=== PATIENT | female | born 1960 | race African-American/Black ===

== ENCOUNTER 2019-05-21 16:14 | Inpatient (IN) ==
[2019-05-21] MEDS ORDERED: ZOFRAN IV ONE ×2 (17:16→23:14)
[2019-05-21] MEDS ORDERED: ZOSYN 4.5 GM in NS 100 ML IV ONE ×2 (17:16→22:22)
[2019-05-21] MEDS ORDERED: MORPHINE IV ONE ×2 (17:16→23:14)
[2019-05-21] MEDS ORDERED: NS 1,000 ML IV ONE ×3 (17:16→19:55)
--- NOTE | 2019-05-21 18:15 | EKG Report ---
Test Performed on : 05/21/2019 5:53:47 PM Test Reason : vomiting Blood Pressure : / mmHG Vent. Rate : 084 BPM Atrial Rate : 084 BPM P-R Int : 120 ms QRS Dur : 078 ms QT Int : 434 ms P-R-T Axes : 083 068 057 degrees QTc Int : 512 ms Normal sinus rhythm. Right atrial enlargement Prolonged QT Abnormal ECG When compared with ECG of 31-JAN-2018 12:04, QT has lengthened Unconfirmed Result
--- NOTE | 2019-05-21 18:20 | PROVIDER DOCUMENTATION ---
This chart was entered by Sybil Chaparro Scribe, acting as scribe for Dalton Morgan MD. HPI-Abdominal Pain/GI Problem - General Source: patient - History of Present Illness-ABD Nature of Presenting Problems: Patient is a 58 year old female who presents to the ED via EMS with generalized abdominal pain. States having diarrhea 5 days ago and then it resolved after 2 days. Reports nausea and vomiting this morning. States having blood in emesis. History of colon surgery in 2011. Denies passing gas. Abdominal Pain Onset Location: reports: generalized abdomen Pain Radiation: reports: no radiation Quality of Pain: reports: aching Severity in ED: reports: mild Onset/Duration: reports: 5 days ago Timing: reports: still present, getting worse Activities at Onset: reports: light activity Modifying Factors: improves with: nothing Associated Symptoms: reports: diarrhea, nausea, vomiting Last BM: 3 days ago Emesis Description: reports: red blood Bruising or Bleeding Gums?: No Similar Symptoms Previously?: Yes Recently seen or treated by another doctor?: No <Dalton Morgan - Last Filed: 05/21/19 18:17> <Yemi Castellanos - Last Filed: 05/22/19 05:16> - General Chief Complaint: N/V/D Stated Complaint: N/V/D Time Seen by Provider: 05/21/19 17:09 Allergies/Adverse Reactions: Patient Allergies Allergy/AdvReac Type Severity Reaction Status Date / Time No Known Allergies Allergy Unverified 10/27/15 20:45 Home Medications: Home Medication List Medication Instructions Recorded Confirmed Last Taken Type Amlodipine [Norvasc] 5 mg PO QAM 08/30/14 05/22/19 06/15/15 14:00 History Pregabalin [Lyrica] 50 mg PO TID 08/30/14 05/22/19 06/15/15 14:00 History Levothyroxine [Synthroid] 50 microgm PO QAM 06/16/15 05/22/19 06/15/15 14:00 History Ciprofloxacin HCl 500 mg PO BID 7 Days #14 tab 05/22/19 Unknown Rx Metronidazole [Flagyl] 500 mg PO TID #21 tab 05/22/19 Unknown Rx Ondansetron Odt [Zofran 4 mg Odt] 4 mg PO Q6H PRN PRN #10 tab 05/22/19 Unknown Rx Umeclidinium/Vilanterol [Anoro 1 puff INH DAILY 05/22/19 05/22/19 Unknown History Ellipta 62.5-25 Mcg INH] Review of Systems - Adult - REVIEW OF SYSTEMS - ADULT Constitutional: reports: no symptoms reported Eyes: reports: no symptoms reported Ears, Nose, Mouth & Throat: reports: no symptoms reported Cardiovascular: reports: no symptoms reported Respiratory: reports: cough. denies: shortness of breath, wheezing Gastrointestinal: reports: see HPI, abdominal pain (generalized), hematemesis, nausea. denies: diarrhea Genitourinary: reports: no symptoms reported Musculoskeletal: reports: no symptoms reported Integumentary: reports: no symptoms reported Neurological: reports: no symptoms reported Psychiatric: reports: no symptoms reported Endocrine: reports: no symptoms reported Hematologic/Lymphatic: reports: no symptoms reported Allergic/Immunologic: reports: no symptoms reported All Other Systems: Reviewed and Negative <Dalton Morgan - Last Filed: 05/21/19 18:17> Past History - Adult - PAST MEDICAL HISTORY-ADULT Review of Records: reports: Old Records Reviewed, Nursing Assessment Review, Medications Reviewed, Social history reviewed & non-contributory. Major Childhood Illnesses: reports: denies history Cardiovascular: reports: HTN Respiratory: reports: COPD Gastrointestinal: reports: denies history Obstetrical/Gynecological: reports: denies history Genitourinary: reports: denies history Musculoskeletal: reports: denies history Neurological: reports: CVA, other (brain aneurysm) Psychiatric: reports: denies history Endocrine/Immune: reports: thyroid disorder Other Conditions: reports: denies history - PRIOR SURGERIES/PROCEDURES Surgical/Procedure History: reports: hysterectomy, bowel surgery - PRIOR HOSPITALIZATIONS Prior Hospitalizations: reports: none - IMMUNIZATION STATUS Childhood Immunizations: See Nurse Assessment Flu Vaccine: See Nurse Assessment - FAMILY HISTORY Family History: reviewed, not pertinent - SOCIAL HISTORY Smoking: cigarettes, greater than 1 pack/day Provider spent 3-5 mins advising pt. on dangers of tobacco.: Discussed manners to quit use, and f/u contacts for add'l counseling. Substance Use: marijuana Living Situation: family <Dalton Morgan - Last Filed: 05/21/19 18:17> Physical Exam-General - PHYSICAL EXAM-ADULT Initial Vital Signs Reviewed: Yes - CONSTITUTIONAL General Appearance: alert, mild distress, other (ill in appearance) - RESPIRATORY Respiratory: chest non-tender, rhonchi (bilateral. left worse than right.), increased rate. negative: respiratory distress - CARDIOVASCULAR Cardiovascular: regular rate, rhythm, no gallop, no murmur. negative: tachycardia - GASTROINTESTINAL (ABDOMEN) Abdominal Exam: normal bowel sounds, soft, tenderness (diffuse). negative: guarding, rebound - SKIN Integumentary: normal color, normal turgor, warm/dry. negative: diaphoresis, pallor - NEUROLOGIC Neurologic: grossly normal. negative: aphasia, facial droop - PSYCHIATRIC Psych/Mental Status: normal mood/affect, oriented x 3. negative: anxious <Dalton Morgan - Last Filed: 05/21/19 18:17> Progress - PLAN OF CARE/RESULTS Progress/Plan/Lab Results: Vital Signs - 8 hr 05/21/19 16:55 Temperature 97.0 F L Pulse Rate 100 H Respiratory Rate 20 Blood Pressure 104/78 O2 Sat by Pulse Oximetry 92 L Orders Category Date Time Status Orthostatic Vital Signs NOW Care 05/21/19 17:04 Active CBC WITH ELECTRONIC DIFF [HEME] Stat Lab 05/21/19 17:03 Uncollected COMPREHENSIVE METABOLIC PANEL [CHEM] Stat Lab 05/21/19 17:03 Uncollected LIPASE [CHEM] Stat Lab 05/21/19 17:03 Uncollected URINALYSIS W/POSS RFLX CULT [URINALYSIS] Stat Lab 05/21/19 17:03 Uncollected URINE DRUG SCREEN Stat Lab 05/21/19 17:03 Uncollected - REASSESSMENT Reassessment #1 Time Reassessed: 18:20 Status: improving (Given iVF bolus, IV morphine and zofran) - EKG 1 Time of EKG reading by physician:: 18:19 EKG Read and Signed by:: Dalton Morgan EKG Interpretation (*Must complete 3 of following elements*): Normal Rate: 84 Rhythm: NSR Dittmer: normal QRS: LVH, other (early transition) TX Interval: normal ST Wave: non-specific ST changes Comments: prolonged QTc, artifact present - CHANGE OF SHIFT REPORT (ED Provider) 1 Report Given and Care Transferred to:: Dr. Castellanos Time of Transfer: 19:00 Items Pending: Labs, CT/MRI Results <Dalton MorganRosalie - Last Filed: 05/21/19 18:17> - PLAN OF CARE/RESULTS Progress/Plan/Lab Results: 05/21/19 17:50 Influenza Screen - Final Nasopharyngeal Laboratory Results - last 24 hr 05/21/19 05/21/19 05/21/19 00:17 18:30 18:38 WBC 10.40 RBC 5.65 H Hgb 17.8 H Hct 53.1 H MCV 94.0 MCH 31.5 H MCHC 33.5 RDW Std Deviation 13.9 Plt Count 234 MPV 11.6 H Immature Gran % (Auto) 0.2 Neut % (Auto) 83.4 H Lymph % (Auto) 12.6 L Garfield % (Auto) 3.6 Eos % (Auto) 0.0 Baso % (Auto) 0.2 Immature Gran # (Auto) 0.02 Neut # (Auto) 8.68 H Lymph # (Auto) 1.31 Garfield # (Auto) 0.37 Eos # (Auto) 0.00 Baso # (Auto) 0.02 PT INR Sodium Potassium Chloride Carbon Dioxide Anion Gap BUN Creatinine Estimated GFR/1.73 m2 BUN/Creatinine Ratio Glucose Calculated Osmolality Calcium Total Bilirubin AST ALT Alkaline Phosphatase Troponin T Rdi-H-Owolvxltezf Pept Total Protein Albumin Globulin Albumin/Globulin Ratio Lipase Plasma Lactate 2.7 H 5.1 H* Urine Source Urine Color Urine Turbidity Urine pH Ur Specific [place] Urine Protein Ur Glucose (Stick) Ur Ketones (Stick) Urine Blood Urine Nitrite Urine Bilirubin Urobilinogen Dipstick Urine Leukocytes Urine WBC (Auto) Urine RBC (Auto) U Epithel Cells (Auto) Urine Bacteria (Auto) Urine Crystals Small Round Cells Urine Casts Urine Yeast-like Cells Urine Opiates Screen Ur Oxycodone Screen Ur Methadone, Qual Ur Barbiturates Screen Ur Phencyclidine Scrn Ur Amphetamines Screen U Benzodiazepines Scrn Urine Cocaine Screen U Cannabinoids Screen 05/21/19 05/21/19 05/21/19 18:38 18:38 18:38 WBC RBC Hgb Hct MCV MCH MCHC RDW Std Deviation Plt Count MPV Immature Gran % (Auto) Neut % (Auto) Lymph % (Auto) [place]field % (Auto) Eos % (Auto) Baso % (Auto) Immature Gran # (Auto) Neut # (Auto) Lymph # (Auto) Garfield # (Auto) Eos # (Auto) Baso # (Auto) PT 14.3 INR 1.09 Sodium 140 Potassium 4.0 Chloride 100 Carbon Dioxide 16 L Anion Gap 24 BUN 14 Creatinine 0.9 Estimated GFR/1.73 m2 > 60 BUN/Creatinine Ratio 16 Glucose 215 H Calculated Osmolality 286 Calcium 10.4 H Total Bilirubin 0.40 AST 26 ALT 17 Alkaline Phosphatase 129 H Troponin T Biz-U-Qryjzrfcjbl Pept 38 Total Protein 7.6 Albumin 4.8 Globulin 2.8 Albumin/Globulin Ratio 1.7 Lipase 26 Plasma Lactate Urine Source Urine Color Urine Turbidity Urine pH Ur Specific [place] Urine Protein Ur Glucose (Stick) Ur Ketones (Stick) Urine Blood Urine Nitrite Urine Bilirubin Urobilinogen Dipstick Urine Leukocytes Urine WBC (Auto) Urine RBC (Auto) U Epithel Cells (Auto) Urine Bacteria (Auto) Urine Crystals Small Round Cells Urine Casts Urine Yeast-like Cells Urine Opiates Screen Ur Oxycodone Screen Ur Methadone, Qual Ur Barbiturates Screen Ur Phencyclidine Scrn Ur Amphetamines Screen U Benzodiazepines Scrn Urine Cocaine Screen U Cannabinoids Screen 05/21/19 05/21/19 05/21/19 18:38 21:17 21:17 WBC RBC Hgb Hct MCV MCH MCHC RDW Std Deviation Plt Count MPV Immature Gran % (Auto) Neut % (Auto) Lymph % (Auto) [place] % (Auto) Eos % (Auto) Baso % (Auto) Immature Gran # (Auto) Neut # (Auto) Lymph # (Auto) [place]field # (Auto) Eos # (Auto) Baso # (Auto) PT INR Sodium Potassium Chloride Carbon Dioxide Anion Gap BUN Creatinine Estimated GFR/1.73 m2 BUN/Creatinine Ratio Glucose Calculated Osmolality Calcium Total Bilirubin AST ALT Alkaline Phosphatase Troponin T < 0.010 Nyi-N-Luxdybajjud Pept Total Protein Albumin Globulin Albumin/Globulin Ratio Lipase Plasma Lactate Urine Source CLEAN CATCH Urine Color YELLOW Urine Turbidity CLEAR Urine pH 6.5 Ur Specific [place] 1.015 Urine Protein 70 A Ur Glucose (Stick) NEGATIVE Ur Ketones (Stick) TRACE A Urine Blood TRACE A Urine Nitrite NEGATIVE Urine Bilirubin NEGATIVE Urobilinogen Dipstick NORMAL Urine Leukocytes NEGATIVE Urine WBC (Auto) 20-40 A Urine RBC (Auto) <10 U Epithel Cells (Auto) <10 Urine Bacteria (Auto) NEGATIVE Urine Crystals NONE SEEN Small Round Cells NONE SEEN Urine Casts NONE SEEN Urine Yeast-like Cells NONE SEEN Urine Opiates Screen PRESUMPTIVE POSITIVE A Ur Oxycodone Screen NONE DETECTED Ur Methadone, Qual NONE DETECTED Ur Barbiturates Screen NONE DETECTED Ur Phencyclidine Scrn NONE DETECTED Ur Amphetamines Screen NONE DETECTED U Benzodiazepines Scrn NONE DETECTED Urine Cocaine Screen NONE DETECTED U Cannabinoids Screen PRESUMPTIVE POSITIVE A Orders Category Date Time Status Nursing- Obtain EKG once Care 05/21/19 17:17 Active Orthostatic Vital Signs NOW Care 05/21/19 17:[address] ABD/PELVIS W/IV CONT ONLY [CT] Stat Exams 05/21/19 17:16 Completed BLOOD CULTURE [BLDCUL] Stat Lab 05/21/19 20:31 Results CBC WITH ELECTRONIC DIFF [HEME] Stat Lab 05/21/19 18:38 Completed COMPREHENSIVE METABOLIC PANEL [CHEM] Stat Lab 05/21/19 18:38 Completed INFLUENZA SCREEN A/B Stat Lab 05/21/19 17:50 Completed LACTATE, PLASMA [CHEM] Stat Lab 05/21/19 00:17 Completed LACTATE, PLASMA [CHEM] Stat Lab 05/21/19 18:30 Completed LIPASE [CHEM] Stat Lab 05/21/19 18:38 Completed PRO B-NATRIURETIC PEPTIDE Stat Lab 05/21/19 18:38 Completed PROTIME WITH INR [COAG] Stat Lab 05/21/19 18:38 Completed TROPONIN T Stat Lab 05/21/19 18:38 Completed URINALYSIS W/POSS RFLX CULT [URINALYSIS] Stat Lab 05/21/19 21:17 Completed URINE DRUG SCREEN Stat Lab 05/21/19 21:17 Completed URINE MANUAL MICROSCOPIC [URINALYSIS] Stat Lab 05/21/19 21:17 Completed 0.9% Sodium Chloride Inj [Ns] 1,000 ml Med 05/21/19 17:16 Discontinued IV 999 mls/hr 0.9% Sodium Chloride Inj [Ns] 1,000 ml Med 05/21/19 17:16 Discontinued IV 999 mls/hr 0.9% Sodium Chloride Inj [Ns] 1,000 ml Med 05/21/19 19:55 Discontinued IV 999 mls/hr Morphine Med 05/21/19 23:14 Discontinued 2 mg IV NOW ONE Morphine Med 05/21/19 17:16 Discontinued 4 mg IV NOW ONE Ondansetron [Zofran] Med 05/21/19 17:16 Discontinued 4 mg IV NOW ONE Ondansetron [Zofran] Med 05/21/19 23:14 Discontinued 4 mg IV NOW ONE Piperacillin/Tazobactam [Zosyn] Med 05/21/19 22:26 Discontinued 2.25 gm .ROUTE .STK-MED ONE Piperacillin/Tazobactam [Zosyn] Med 05/21/19 23:25 Discontinued 2.25 gm .ROUTE .STK-MED ONE Piperacillin/Tazobactam [Zosyn] 4.5 gm Med 05/21/19 17:16 Discontinued 0.9% Sodium Chloride Inj [Ns] 100 ml IV NOW Piperacillin/Tazobactam [Zosyn] 4.5 gm Med 05/21/19 22:22 Discontinued 0.9% Sodium Chloride Inj [Ns] 100 ml IV NOW EKG [EKG] Stat Ther 05/21/19 17:17 Draft Result Diagrams: 05/21/19 18:38 05/21/19 18:38 - REASSESSMENT Reassessment #2 Time Reassessed: 22:45 Status: improving (lactate pending) Reassessment #3 Time Reassessed: 03:00 Status: improving (pain well controlled. Lactate decreased, m/l increase was from dehydration. will d/c home) Reassessment #4 Time Reassessed: 04:00 Status: other (pt was feeling better and about to leave and then started throwing up again. will admit. Hospitalist paged.) - CONSULTS/PCP/HOSPITALIST Notification #1 *Consult/PCP/Hospitalist*: Dr Bach Time Discussed: 05:16 Consult Disposition: Admit <Yemi Castellanos - Last Filed: 05/22/19 05:16> Departure <Dalton Morgan - Last Filed: 05/21/19 18:17> - Departure Date of Disposition Decision: 05/22/19 Time of Disposition Decision: 03:18 Certified Medical Emergency: Emergent - Critical Care Note This patient required my direct & personal management of CC.: No <Yemi Castellanos - Last Filed: 05/22/19 05:16> - Departure DIAGNOSIS: Nausea & vomiting, Back pain, Dehydration, Elevated lactic acid level Disposition: ADMITTED INPATIENT 09 Condition: Stable Additional Instructions: ED Follow Up Instructions: You have been treated by a care provider in the Emergency Department. These instructions are being provided to you so you can have an understanding of how to care for yourself upon discharge. Upon discharge from the Emergency Department, you are responsible for making arrangements for follow-up care by a physician of your choice. Take all prescribed medications as directed. Return to the Emergency Department immediately for any new or worsening symptoms. You may call the Physician Referral phone number at [phone] to obtain a list of Physicians who are taking new patients. Prescriptions: Ciprofloxacin HCl 500 mg PO BID 7 Days #14 tab Metronidazole [Flagyl] 500 mg PO TID #21 tab Ondansetron Odt [Zofran 4 mg Odt] 4 mg PO Q6H PRN PRN #10 tab PRN Reason: Nausea Referrals and Follow-Ups: Génesis Hernandez MD [Primary Care Provider] - Discharge Education: Abdominal Pain, Adult Attestation - Physician/ LUZ Attestation The physician spent face to face time with patient:: Yes Advanced Practice Provider documentation review:: Supervising physician onsite and consulted in the evaluation and care of this patient. The physician did have a face to face encounter with the patient. <Dalton Morgan - Last Filed: 05/21/19 18:17> - Physician/ LUZ Attestation Patient care was provided by Advanced Practice Provider:: No <Yemi Castellanos - Last Filed: 05/22/19 05:16> This chart was documented by the indicated scribe, (Sybil Chaparro Scribe) and accurately reflects the services I performed and decisions made by me, Dalton Morgan MD, as attested by the provider's signature.
[2019-05-21 19:06] LABS: BASO# 0.02 X1000 (0.0-0.2); BASO% 0.2 % (0.0-0.8); HEMATOCRIT 53.1 % (37.0-47.0); HEMOGLOBIN 17.8 g/dL (12.0-16.0); IMM GRAN# 0.02 X1000 (0.0-0.04); IMM GRAN% 0.2 % (0.0-0.5); LYMPH# 1.31 X1000 (1.2-3.4); LYMPH% 12.6 % (20.5-51.1); MCH 31.5 PG (27-31); MCHC 33.5 g/dL (33-37); MONO# 0.37 X1000 (0.11-0.59); MONO% 3.6 % (1.7-9.3); MPV 11.6 FL (7.4-10.4); NEUT# 8.68 X1000 (1.4-6.5); NEUT% 83.4 % (42.2-75.2); PLT 234 X1000 (130-400); RBC 5.65 XMIL (4.2-5.4); RDW 13.9 % (11.5-14.5)
[2019-05-21 19:18] LABS: INR 1.09; PROTIME 14.3 Seconds (11.0-16.0)
[2019-05-21 19:29] LABS: AGAP 24; ALB/GLOB RATIO 1.7; ALBUMIN 4.8 g/dL (3.5-5.0); ALKALINE PHOSPHATASE 129 U/L (32-104); BUN 14 mg/dL (8-22); CALCIUM 10.4 mg/dL (8.8-10.2); CHLORIDE 100 mmol/L (98-107); COSMO 286; CREATININE 0.9 mg/dL (0.5-0.9); ESTIMATED GFR > 60; GLUCOSE 215 mg/dL (70-104); GOT 26 U/L (10-30); GPT 17 U/L (10-36); LIPASE 26 U/L (13-60); SODIUM 140 mmol/L (136-145); TCO2 16 mmol/L (25-35); TOTAL PROTEIN 7.6 g/dL (6.3-8.3)
--- NOTE | 2019-05-21 20:41 | Diag Imaging Result Doc PS360 ---
CT ABD/PELVIS W/IV CONT ONLY - 05/21/2019 INDICATION: colitis COMPARISON: 10/27/2015 FINDINGS: The lung bases are clear and the heart size is normal. There is amwgk-bo-fbxrouey ascites. The colon is severely abnormal compatible with diffuse colitis. There are surgical suture lines of the ascending colon. No obstruction or free air. Uterus is absent. Urinary bladder and rectum are normal. There are moderate degenerative changes of the spine. No acute or suspicious bony lesion. IMPRESSION: 1. Severe diffuse colitis. 2. Small to moderate ascites. This exam was performed using automated exposure control, adjustment of mA or kV according to patient size, and/or use of iterative reconstruction technique Electronically signed by Elmer Torres 05/21/2019 8:39 PM
[2019-05-21 22:23] LABS: URINE SOURCE CLEAN CATCH
[2019-05-21] MEDS ORDERED: ZOSYN ONE ×2 (22:26→23:25)
[2019-05-21 22:30] LABS: BILIRUBIN URINE NEGATIVE (NEGATIVE); BLOOD URINE TRACE (NEGATIVE); COLOR YELLOW; GLUCOSE URINE NEGATIVE (NEGATIVE); KETONE URINE TRACE mg/dL (NEGATIVE); LEUKOCYTES URINE NEGATIVE (NEGATIVE); NITRITE URINE NEGATIVE (NEGATIVE); PH URINE 6.5; PROTEIN URINE 70 mg/dL (NEGATIVE); TURBIDITY URINE CLEAR (CLEAR); UROBILINOGEN URINE NORMAL (NORMAL)
[2019-05-21 22:37] LABS: UR EPITHELIAL CELLS <10 /HPF (<10); URINE BACTERIA NEGATIVE /HPF; URINE RBC <10 /HPF (<10); URINE WBC 20-40 /HPF (<10)
[2019-05-21 22:44] LABS: URINE CASTS NONE SEEN; URINE CRYSTALS NONE SEEN; URINE SMALL ROUND CELLS NONE SEEN; URINE YEAST NONE SEEN
[2019-05-21 22:49] LABS: SP GRAVITY URINE 1.015
[2019-05-21 23:06] LABS: UR AMPHETAMINES QUAL NONE DETECTED (NONE DETECT); UR BARBITUATES QUAL NONE DETECTED (NONE DETECT); UR BENZODIAZEPIN QUAL NONE DETECTED (NONE DETECT); UR CANNABINOIDS QUAL PRESUMPTIVE POSITIVE (NONE DETECT); UR COCAINE QUAL NONE DETECTED (NONE DETECT); UR METHADONE QUAL NONE DETECTED (NONE DETECT); UR OPIATES QUAL PRESUMPTIVE POSITIVE (NONE DETECT); UR OXYCODONE QUAL NONE DETECTED (NONE DETECT); UR PCP QUAL NONE DETECTED (NONE DETECT)
[2019-05-22] MEDS ORDERED: DUONEB (A & A) INH SCH (05:45)
[2019-05-22] MEDS ORDERED: NS 1,000 ML IV ONE (05:46)
[2019-05-22] MEDS: DUONEB (A & A) INH PRN ×3 (05:55→20:00)
[2019-05-22] MEDS ORDERED: ZOFRAN IV PRN (06:19)
[2019-05-22] MEDS ORDERED: ZOSYN 3.375 GM in NS 50 ML IV SCH (06:45)
[2019-05-22] MEDS ORDERED: ZOFRAN ODT PO PRN (07:03)
[2019-05-22] MEDS ORDERED: SODIUM CHLORIDE 0.9% INJ PRN (07:04)
--- NOTE | 2019-05-22 07:11 | Diag Imaging Result Doc PS360 ---
CHEST-PORTABLE - 05/22/2019 INDICATION: Coarse Rhonchi and wheezing COMPARISON: 04/08/2018 FINDINGS: Lung volumes are much lower. There is some linear atelectasis in the lateral left lung base. No infiltrates or edema. Heart size is normal. Stable calcified granulomas in the left midlung. IMPRESSION: Lower lung volumes with mild linear atelectasis in the lateral left lung base. Electronically signed by Elmer Torres 05/22/2019 7:09 AM
[2019-05-22] MEDS ORDERED: TYLENOL PO PRN (07:15)
[2019-05-22] MEDS: LYRICA PO SCH ×3 (08:10→20:07)
[2019-05-22] MEDS: PROTONIX IV SCH ×2 (08:10→20:06)
[2019-05-22] MEDS: NS 1,000 ML IV SCH (08:10)
[2019-05-22] MEDS: MORPHINE IV PRN ×3 (08:11→20:07)
[2019-05-22] MEDS: SYNTHROID PO SCH (08:11)
--- NOTE | 2019-05-22 08:35 | HISTORY AND PHYSICAL ---
PRIMARY CARE PROVIDER: Dr. Génesis Hernandez. DATE AND TIME: 05/22/2019 at 0525. CHIEF COMPLAINT: Abdominal pain with nausea, vomiting, and diarrhea. HISTORY OF PRESENT ILLNESS: Ms Islas is a 58-year-old female who states that since May 16, approximately 6 days ago, that she has been having generalized abdominal pain that is radiating through to her back at the level of her umbilicus. She reports that the pain is a constant aching type pain that does become sharp at times. She reports that it has been constant since onset, though when she arrived in the ER, she was given IV morphine that she states has helped improve her pain. She reports that since May 16, 6 days ago, that she also was having diarrhea though she states that this did stop on the , 2 days ago. She denies any diarrhea or any bowel movements since that time. The patient also reports that she has not really eating anything or drank much fluids either. She states that yesterday she did begin having nausea and vomiting and did have several episodes of vomiting yesterday. She denies any fever, body aches, or chills. She denies any recent travel or being around anyone with similar symptoms. She also has reported some hematemesis when her nausea and vomiting first began and did report that initially when her diarrhea started that she was having some melena. She denies any use of iron tablets or Pepto-Bismol. She also denies any [id number] use of any medications such as aspirin, ibuprofen, naproxen, or BC powders. The patient does report that she drinks 1 wine cooler a day, which she reported was a wine cooler called a screwdriver, though she states just 1 a day is all she drinks. She did report to occasionally smoking marijuana as well. She denied any recent known history of having colitis or any type of gastrointestinal infection. She also denies any dizziness. She does report that she has chronic headaches secondary to her previous history of stroke, though none of these have been outside of her usual headaches. She denies any chest pain. The patient does report a chronic cough that is related to her COPD, though she states this has not worsened, is nonproductive. She also denies any shortness of breath. She denies any dysuria or urinary frequency. She denies any pain, numbness, tingling or swelling in extremities. Upon evaluation in the ER, the patient had been slightly tachycardic since arrival, though has been afebrile. Her blood pressure was at borderline lower side with initial blood pressure 104/78. She has received 2 L normal saline bolus and is currently receiving her 3rd normal saline bolus. She did receive IV morphine as well as Zofran and IV Zosyn in the ER. Blood cultures were obtained as well. They also did perform an influenza screen which was negative. Urinalysis did show ketone and blood and white blood cells, though the patient is asymptomatic. Given her symptoms, I did perform a CT abdomen and pelvis with IV contrast which did show severe diffuse colitis and small to moderate ascites. They did provide medications as mentioned above and fluids in the ER and we are going to try to discharge the patient with oral antibiotics, though upon trying to discharge her, the patient did begin to have further episodes of nausea and vomiting. Given this, they did go ahead and decide to admit her for further treatment and evaluation. REVIEW OF SYSTEMS: A 14 point review of systems was conducted with the patient and all were negative except for pertinent positives mentioned in above HPI. PAST MEDICAL HISTORY: 1. History of previous CVA for which the patient did have a brain aneurysm and did undergo surgical repair for this. Since that time, she does have residual right- sided weakness. 2. Hypothyroidism. 3. Hypertension. 4. Hepatitis C for which she has received treatment with her Harvoni for. 5. History of bowel obstruction and perforation for which she did undergo a bowel resection and a 2nd revision of her previous bowel resection. 6. COPD. 7. History of upper GI bleed in 2015 which was believed to be secondary to EGD findings of erosive esophagitis and gastritis. 8. Hiatal hernia. PAST SURGICAL HISTORY: 1. Colon resection x2. 2. Brain surgery for aneurysm. 3. Hysterectomy. SOCIAL HISTORY: The patient is an everyday smoker. She does smoke approximately 3 Black and Mild's per day and has done so since she was in her teenage years. She does report occasional marijuana use and does report that she drinks 1 wine cooler/mixed cocktail a day for which she reports is like a pre-made drink that is similar to a screwdriver. FAMILY HISTORY: Positive for her sister having a history of colon cancer. Her mother had a history of lung cancer. She states she did not know her father well and did not know any of his medical history either. ALLERGIES: Patient has no known allergies. HOME MEDICATIONS: 1. Norvasc 5 mg p.o. q.a.m. 2. Synthroid 50 mcg p.o. daily. 3. Lyrica 50 mg p.o. t.i.d. 4. Anoro Ellipta 62.5-25 mcg inhaler 1 puff inhaled daily. LABORATORY AND DIAGNOSTIC DATA: White blood cell count 96432, hemoglobin 17.8, hematocrit 53.1, platelet count is 234,000. PT 14.3, INR 1.09. Sodium 140, potassium 4, chloride 100 serum bicarb is 16, BUN 14, creatinine 0.9 with a GFR greater than 60, glucose 215, calcium 10.4. Liver function tests within normal limits, however, alkaline phosphatase is elevated at 129. Troponin less than 0.01. ProBNP is 38. Lipase 26. Urinalysis was obtained via clean catch, was positive for protein, ketones, trace blood and 20 to 40 white blood cells. It was negative for glucose, nitrites, leukocytes, or bacteria. Urine drug screen was positive for opiates and cannabinoids. EKG performed in the ER did show normal sinus rhythm with a right atrial enlargement, prolonged QT at a rate of 84 with a QTc of 512. CT abdomen and pelvis with IV contrast only did show severe diffuse colitis and small to moderate ascites. Please see full CT report for all detailed findings. We are awaiting chest x-ray results this time as well. PHYSICAL EXAMINATION: VITAL SIGNS: Temperature 97 degrees, heart rate 123, respirations 18, blood pressure is 121/96, oxygen saturation is 95% on room air. GENERAL: Ms. Ilsas is a pleasant 58-year-old female. She was resting on the ER stretcher. She was in no acute distress. She was awake, alert, and able to answer questions appropriately. HEENT: Head is atraumatic, normocephalic. Pupils are equal, round, reactive to light, were 3 mm bilaterally and brisk. Oral mucosa was slightly dry. Oropharynx is clear. NECK: Supple. Trachea midline. CARDIOVASCULAR: The patient has S1, S2 present. No murmurs, gallops, rubs appreciated with a tachycardic rate that is regular. PULMONARY: The patient has symmetrical chest expansion bilaterally. Lung sounds did have coarse rhonchi and expiratory wheezing noted upon auscultation. ABDOMEN: Soft though does appear to be slightly distended. She did have generalized tenderness noted though this was worse in the left lower quadrant. Bowel sounds were present in all 4 quadrants, were hyperactive. EXTREMITIES: Pulse, motor and sensory are intact in all extremities. Radial and pedal pulses were 2+ bilaterally. INTEGUMENTARY: Patient's skin color is normal for her race, is dry and intact. NEUROLOGICAL: Patient is alert and oriented to person, place, time, and situation. She is able to follow commands and answer questions appropriately. She is able move all extremities. The patient does have some residual weakness on her right side from her previous stroke, though other than this, did not have any focal neurological deficits noted. ASSESSMENT AND PLAN: 1. Colitis. For further evaluation of this, we will place the patient with a clear liquid diet. She did have a vomiting episode in the ER though has since been able to take some sips of water and hold that down. We will place her with antibiotic coverage of Zosyn. Blood cultures have been obtained. She received a total of 3 L normal saline bolus in the ER. We will provide some gentle IV hydration as well. We will also place orders for p.r.n. pain and antiemetic medications. We will also place her with Protonix 40 mg IV q.12 hours. We have also ordered some stool studies as well. We have placed a consult with Dr. Winter of Gastroenterology. We will await his evaluation and further recommendations for management. 2. Nausea, vomiting, diarrhea. Further evaluation of this has been mentioned. We have placed orders for a stool study as well as a Gastroccult. We will place p.r.n. orders for antiemetics. We are providing some gentle IV fluid hydration as well. 3. History of hypertension. The patient's blood pressure was borderline on the low side upon arrival. She has been given 3 L normal saline bolus and does have some maintenance IV fluids going at this time and blood pressures have improved with the last reading of 121/96, though we will hold her amlodipine for today and monitor her blood pressure and implement this back if necessary. 4. Chronic obstructive pulmonary disease. The patient does have rhonchi and wheezing noted upon auscultation, though she is denying any shortness of breath. She does have a chronic cough for which she says has not worsened and is nonproductive. She denies any fever, body aches, or chills. We did order a chest x-ray. We are awaiting those results at this time, though we will continue with p.r.n. DuoNeb treatments, incentive spirometry and frequent encouragement to turn, cough and deep breathe. We will also continue her supplemental oxygen for which she wears at night. 5. Hypothyroidism We will continue her Synthroid. We have placed orders for TSH. 6. History of cerebrovascular accident secondary to a brain aneurysm for which she did undergo surgical repair of this for and does have residual right-sided weakness. 7. Nicotine dependence. We did vp & general counsel the patient on the importance of smoking cessation given her history of hypertension, CVA, and COPD. She did express that she did want to quit smoking. We will continue to vp & general counsel her upon this throughout her admission and upon discharge. 8. Deep vein thrombosis prophylaxis provided with sequential compression devices. The patient has been placed on the medical floor with telemetry. She will have vital signs every 6 hours, do strict intake and output. We will repeat a CBC, BMP this morning. We have also add on additional labs of a magnesium, sedimentation rate, CRP and TSH. The patient was hyperglycemic on her initial labs in the ER and we have ordered a hemoglobin A1c as well. She has no previous history of having hyperglycemia or diabetes mellitus in the past. Further orders and recommendations pending hospital course, diagnostic studies, and physician evaluation. Dictated by SONG Desai for Long Bach MD cc: Long Bach MD [facility]
[2019-05-22 08:54] LABS: BASO# 0.01 X1000 (0.0-0.2); BASO% 0.1 % (0.0-0.8); HEMOGLOBIN 16.8 g/dL (12.0-16.0); IMM GRAN# 0.02 X1000 (0.0-0.04); IMM GRAN% 0.2 % (0.0-0.5); LYMPH# 0.36 X1000 (1.2-3.4); LYMPH% 3.6 % (20.5-51.1); MCH 31.2 PG (27-31); MCHC 33.6 g/dL (33-37); MCV 92.8 FL (81-99); MONO# 0.35 X1000 (0.11-0.59); MONO% 3.5 % (1.7-9.3); MPV 11.1 FL (7.4-10.4); NEUT# 9.37 X1000 (1.4-6.5); NEUT% 92.6 % (42.2-75.2); PLT 208 X1000 (130-400); RBC 5.39 XMIL (4.2-5.4); WBC 10.11 X1000 (4.8-10.8)
[2019-05-22 09:18] LABS: AGAP 18; BUN 21 mg/dL (8-22); C REACTIVE PROT QUANT 18.73 mg/L (0.00-5.00); CHLORIDE 107 mmol/L (98-107); COSMO 290; ESTIMATED GFR > 60; GLUCOSE 134 mg/dL (70-104); POTASSIUM 4.1 mmol/L (3.5-5.1); SODIUM 143 mmol/L (136-145); TCO2 18 mmol/L (25-35)
[2019-05-22 09:55] LABS: SED RATE 4 mm/hr (0-20)
[2019-05-22 09:58] LABS: ANISOCYTOSIS 1+; LYMPHS 5 % (21-51); MONO 4 % (1-9); SEGS 91 % (42-75)
--- NOTE | 2019-05-22 12:12 | PROGRESS NOTE ---
DATE: 05/22/2019 SUBJECTIVE: This morning, Ms. Islas refers to be doing fairly okay. Still has a lot of abdominal pain. No nausea, no vomiting and she has not had any more bowel movement. OBJECTIVE: Vital signs: Blood pressure is 128/80, pulse of 111, respiration is 19, temperature 98.5 degrees. General: Ms. Islas, a 58-year-old female. She is in bed, no distress. HEENT: Mucosa is pink and moist. Anicteric. Acyanotic. Neck: Supple. Chest: Good air entry bilaterally. There were no crepitations, no rhonchi. Cardiovascular: Slightly tachycardic but no murmurs, no rubs, no gallops. Gastrointestinal: Abdomen is soft, is minimally distended and is tender everywhere with mild guarding. There was no peritoneal reaction. There is an old midline surgical scar. Extremities: No pedal edema. Central nervous system: Patient is awake, alert, and oriented. There is no focal deficit. Minimal right-sided weakness. LABORATORY DATA: WBC is 10.11, hemoglobin is 16.8, platelet count of 208,000. Chemistry is also reviewed. Bicarb is 18. Rest of chemistry is unremarkable. The patient's plasma lactate was 5.1. Urine toxicology was positive for opioids and cannabinoids. IMAGING: A CT scan of the abdomen and pelvis showed severe diffuse colitis, small to moderate ascites. ASSESSMENT: 1. Abdominal pain on admission secondary to diffuse colitis, presumably infectious in etiology. The patient is currently on antibiotics. GI has been consulted. 2. Sepsis secondary to colitis. 3. History of chronic obstructive pulmonary disease, currently not in exacerbation. 4. Hypothyroidism. We will continue with Synthroid. 5. Previous history of cerebrovascular accident due to brain aneurysm. The patient is status post aneurysm repair with minimal right-sided weakness. 6. Hypertension, controlled. 7. Recreational substance use (cannabinoids). 8. Clinical volume depletion with hemoconcentration on labs. We will continue with fluid resuscitation. cc: Francisco Moon MD
--- NOTE | 2019-05-22 12:38 | GASTROENTEROLOGY CONSULTATION ---
DATE: 05/22/2019 REASON FOR CONSULTATION: Acute nausea, vomiting, diarrhea, colitis on imaging. HISTORY OF PRESENT ILLNESS: Ms. Carmen Islas is a 58-year-old woman with past medical history of hypertension, prior brain aneurysm requiring craniotomy and clipping in 2003 with residual right- sided weakness, hypothyroidism, treated hepatitis C, prior colonic obstruction x2 requiring partial colonic resection in 2011 and 2012, history of gastritis, hemorrhoids, who presents with acute nausea, vomiting, and diarrhea of since . The patient reports being in her usual state of health until after attending a [place] holiday constitution party. The next day, she developed profuse watery diarrhea numerous times per day with abdominal pain that radiated diffusely into the back. She denies any fevers, sick contacts, recent antibiotics, or abnormal weight loss. Her appetite has been poor over the last few days. She subsequently developed nonbloody, nonbilious emesis this morning with streaks of bright red blood, no melena, scant amount of bright red blood when she initially started having diarrhea, none currently. Her last colonoscopy and endoscopy were in May 2016, where she was found to have a 1 cm hiatal hernia, minimal non-H pylori gastritis, grade 2 hemorrhoids and anastomosis at 60 cm from the anal verge as well as a 2nd anastomosis at 20 cm from the anus, which appears to be an ileocolonic anastomosis, all healthy appearing. There was no evidence of Crohn disease or ulceration noted at that time. This morning the patient denies having any diarrhea. No other associated symptoms. REVIEW OF SYSTEMS: As per HPI, otherwise 12 point review of systems is negative. PAST MEDICAL HISTORY: Includes hypertension, hypothyroidism, treated hepatitis C, prior colonic obstruction requiring resection, history of non-H pylori gastritis, hiatal hernia, prior stroke from brain aneurysm, tobacco abuse. PAST SURGICAL HISTORY: Colonic resection x2, brain surgery for aneurysm, hysterectomy. SOCIAL HISTORY: She smokes about 2 to 3 cigars daily since childhood. Occasional marijuana. She drinks 1 to 2 wine coolers daily. No history of alcohol withdrawal or cirrhosis. FAMILY HISTORY: Notable for pancreatic cancer in her sister and lung cancer in mother. No family history of inflammatory bowel disease or colon cancer. HOME MEDICATIONS: Include Norvasc, Synthroid Lyrica, and Ellipta inhaler. ALLERGIES: No known drug allergies. PHYSICAL EXAMINATION: Vital Signs: Temperature 98.5 degrees, heart rate of 110, respiratory rate 16, blood pressure 128/80, O2 saturation 96% on 2 L nasal cannula. General: The patient is awake, alert, oriented, in no acute distress. HEENT: Sclerae anicteric. Moist mucous membranes. Extraocular movements intact. Neck: Supple. No JVD or lymphadenopathy. Cardiac: Tachycardic. No murmurs. Abdomen: Soft, diffusely tender. No rebound or guarding. Bowel sounds are present. Extremities: No clubbing, cyanosis, or edema. Neurologic: Moving all extremities symmetrically. LABORATORY DATA: White count of 10.1, hemoglobin is 16.8 from 17.8 yesterday, MCV is 92.8, platelets of 208,000. ESR of 4, CRP of 18. LFTs show alkaline phosphatase of 129, otherwise normal. Sodium of 143, potassium 4.1, chloride of 107, bicarb 18, BUN of 21, creatinine of 1.0. UA shows trace ketones, protein, white cells of 20 to 40. Urine toxicology positive for opioids and cannabinoids. IMAGING: Chest x-ray shows low lung volumes with mild linear atelectasis in the lateral left lung base. CT of the abdomen and pelvis with IV contrast shows severe diffuse colitis with small to moderate ascites. ASSESSMENT AND PLAN: Ms. Carmen Islas is a 58-year-old woman with past medical history significant for treated hepatitis C, prior brain aneurysm, stroke from brain aneurysm, colonic resection x2 and tobacco abuse, who presents with acute nausea, vomiting, and diarrhea, found to have volume depletion, elevated inflammatory markers, low bicarbonate and diffuse colitis on imaging. UA is positive for white cells, nitrite negative. Blood cultures x2 are pending. She has not been able to supply a stool study which are ordered. I suspect that her presentation is likely infectious in etiology given rapid onset and nausea and vomiting combined. She is up-to-date with colonoscopy. No personal or family history of colon cancer or inflammatory bowel disease. We will treat supportively with IV fluids, pain control, antiemetics. She is currently on Zosyn antibiotics which I suspect is not necessary. We will discontinue antibiotics for now. Continue clear liquid diet and advance as tolerated. She is on a PPI 40 mg IV twice daily, which can be transitioned to by mouth when able. No plans for endoscopic evaluation at this time. She appears to have heme concentration with an elevated hemoglobin. Her rectal bleeding and hematemesis I suspect is either from esophagitis, Shana-Zhu tear, gastritis and hemorrhoids, and colitis respectively. # Colitis # N/V # Diarrhea # Tobacco abuse # Volume depletion # Rectal bleeding # Hematemesis Thank you for this consult. We will follow with you. Please call with any questions or concerns. MTDD
[2019-05-22] MEDS ORDERED: VANCOMYCIN IV PER PHARMACY MISC SCH (15:00)
[2019-05-22] MEDS ORDERED: VANCOMYCIN 1,700 MG in NS 250 ML IV ONE (16:00)
[2019-05-23] MEDS: NS 1,000 ML IV SCH (00:09)
[2019-05-23] MEDS: MORPHINE IV PRN ×5 (00:19→19:44)
[2019-05-23 05:44] LABS: BASO# 0.02 X1000 (0.0-0.2); BASO% 0.3 % (0.0-0.8); EOS% 1.6 % (0.0-10.0); HEMATOCRIT 44.4 % (37.0-47.0); HEMOGLOBIN 14.7 g/dL (12.0-16.0); LYMPH% 9.6 % (20.5-51.1); MCH 31.4 PG (27-31); MCHC 33.1 g/dL (33-37); MCV 94.9 FL (81-99); MONO# 0.62 X1000 (0.11-0.59); MONO% 9.9 % (1.7-9.3); NEUT# 4.91 X1000 (1.4-6.5); NEUT% 78.6 % (42.2-75.2); PLT 174 X1000 (130-400); RBC 4.68 XMIL (4.2-5.4); RDW 14.3 % (11.5-14.5); WBC 6.25 X1000 (4.8-10.8)
[2019-05-23 05:59] LABS: AGAP 12; BUN 18 mg/dL (8-22); C REACTIVE PROT QUANT 87.09 mg/L (0.00-5.00); CALCIUM 8.5 mg/dL (8.8-10.2); CHLORIDE 107 mmol/L (98-107); COSMO 281; CREATININE 0.9 mg/dL (0.5-0.9); ESTIMATED GFR > 60; GLUCOSE 94 mg/dL (70-104); POTASSIUM 4.4 mmol/L (3.5-5.1); SODIUM 140 mmol/L (136-145); TCO2 21 mmol/L (25-35)
[2019-05-23] MEDS: SODIUM CHLORIDE 0.9% INJ SCH ×2 (06:00→08:42)
[2019-05-23] MEDS: SYNTHROID PO SCH (06:01)
[2019-05-23 06:48] LABS: SED RATE 12 mm/hr (0-20)
[2019-05-23] MEDS: LYRICA PO SCH ×3 (08:41→20:04)
[2019-05-23] MEDS: PROTONIX IV SCH (08:42)
[2019-05-23] MEDS: SENOKOT PO SCH ×2 (14:36→20:05)
[2019-05-23] MEDS ORDERED: VANCOMYCIN 1,250 MG in NS 250 ML IV SCH (16:00)
--- NOTE | 2019-05-23 16:05 | PROVIDER PROGRESS NOTE ---
Progress Note S: No acute overnight events. Afebrile. No N/V/F. She is tolerating PO. She reports her abdominal pain is improving. She feels constipated. O: Last Vital Signs Temp 98.1 F 05/23/19 12:00 Pulse 89 05/23/19 12:00 Resp 15 05/23/19 12:00 BP 104/63 05/23/19 12:00 Pulse Ox 100 05/23/19 12:00 Height 5 ft 8 in Weight 140 lb GEN: awake, alert, NAD HEENT: anicteric, MMM NECK: supple, no JVD PULM: CTAB, no wheezing CV: RRR, no murmurs ABD: soft, mild TTP throughout, no rebound or guarding EXT: no cce NEURO: nonfocal LABS: 05/23/19 05/23/19 05:18 05:18 WBC 6.25 Hgb 14.7 Plt Count 174 Sodium 140 Potassium 4.4 Chloride 107 Carbon Dioxide 21 L Anion Gap 12 BUN 18 Creatinine 0.9 Glucose 94 ASSESSMENT AND PLAN: Ms. Carmen Islas is a 58-year-old woman with treated hepatitis C, prior CVA 2/2 ruptured brain aneurysm with residual right-sided weakness, tobacco abuse, and prior colonic obstruction s/p partial colonic resection x2 who presents with acute N/V/D found to have colitis, likely infectious in etiology. N/V resolved. She is no longer having diarrhea and complaining of constipation. Heme concentration improving. Scant hematemesis and rectal bleeding resolved. Abdominal pain, VSS, and labs improving. # Colitis: likely infectious; if patient develops diarrhea, send stool studies; no indication for antibiotics at this time; will stop trending CRP # N/V: resolved; cont antiemetics prn # Hematemesis: transition PPI to PO BID # Rectal bleeding: likely from colitis +/- hemorrhoids # Constipation: will start senna BID # Tobacco abuse: smoking cessation encouraged Will follow with you. Please call with questions.
--- NOTE | 2019-05-23 16:11 | PROGRESS NOTE ---
DATE: 05/23/2019 SUBJECTIVE: This morning Ms. Islas referred to be doing okay. Still has some remarkable abdominal discomfort. No vomiting. She says she has not had any bowel movement yet. OBJECTIVE: Vital signs: Blood pressure is 104/63, pulse of 89, respiration is 15, temperature is 98.1 degrees, patient is saturating 100%. General: Ms. Islas is a 58-year-old female. She is in bed, no distress. HEENT: Mucosa is pink and moist. Anicteric. Acyanotic. Neck: Supple. Chest: Good air entry bilaterally. There is a few end expiratory wheezing. Cardiovascular: Regular rate and rhythm. Abdomen: Soft. Mildly distended and tender with mild guarding and questionable rebound tenderness. There is an old supraumbilical surgical scar. Extremities: No pedal edema. Distal pulses are present. [employer]: Patient is awake, alert, and oriented. LABORATORY DATA: CBC is normal. Chemistry is also completely normal. The patient's C-reactive protein is up at 87.09. ASSESSMENT: 1. Sepsis on presentation secondary to diffuse colitis. 2. Abdominal pain secondary to diffuse colitis, presumably infectious etiology. 3. History of chronic obstructive pulmonary disease, in mild exacerbation. Patient will be on nebulization. 4. Hypothyroidism. Will continue with Synthroid. 5. Previous history of cerebrovascular accident due to brain aneurysm. Patient is status post aneurysm repair with minimal right-sided weakness. 6. Hypertension, controlled. 7. Recreational substance use (cannabinoids). 8. Clinical volume depletion with hemoconcentration, improved. PLAN: 1. Today Ms. Islas continues to be hurting. Her C-reactive protein is 87, far more than when she came in, and she continues to be hurting in her abdomen. We will continue with the current antimicrobial coverage. Keep her on a clear liquid diet. Re-evaluate her in the morning. 2. The patient has been started on bowel regimen as well. 3. If clinically she is not improving, we will rescan her abdomen tomorrow. cc: Francisco Moon MD
[2019-05-23] MEDS: SOLU-MEDROL IV SCH (17:36)
[2019-05-23] MEDS: PROTONIX PO SCH (20:04)
[2019-05-24] MEDS: MORPHINE IV PRN ×7 (01:33→23:11)
[2019-05-24] MEDS: SOLU-MEDROL IV SCH ×2 (03:22→16:04)
[2019-05-24 05:38] LABS: BASO# 0.01 X1000 (0.0-0.2); BASO% 0.1 % (0.0-0.8); HEMATOCRIT 38.8 % (37.0-47.0); HEMOGLOBIN 12.7 g/dL (12.0-16.0); LYMPH# 0.39 X1000 (1.2-3.4); LYMPH% 5.5 % (20.5-51.1); MCH 31.3 PG (27-31); MCHC 32.7 g/dL (33-37); MCV 95.6 FL (81-99); MONO# 0.31 X1000 (0.11-0.59); MONO% 4.4 % (1.7-9.3); MPV 11.2 FL (7.4-10.4); NEUT# 6.36 X1000 (1.4-6.5); PLT 157 X1000 (130-400); RBC 4.06 XMIL (4.2-5.4); RDW 13.7 % (11.5-14.5); WBC 7.07 X1000 (4.8-10.8)
[2019-05-24 06:01] LABS: AGAP 15; ALB/GLOB RATIO 1.2; ALBUMIN 3.3 g/dL (3.5-5.0); ALKALINE PHOSPHATASE 90 U/L (32-104); BUN 14 mg/dL (8-22); CALCIUM 8.6 mg/dL (8.8-10.2); CHLORIDE 105 mmol/L (98-107); COSMO 277; CREATININE 0.7 mg/dL (0.5-0.9); ESTIMATED GFR > 60; GLUCOSE 84 mg/dL (70-104); GOT 19 U/L (10-30); GPT 12 U/L (10-36); POTASSIUM 4.3 mmol/L (3.5-5.1); SODIUM 139 mmol/L (136-145); TCO2 19 mmol/L (25-35); TOTAL BILIRUBIN 0.49 mg/dL (0.20-1.00)
[2019-05-24] MEDS: SYNTHROID PO SCH (06:15)
[2019-05-24] MEDS: PROTONIX PO SCH ×2 (08:17→20:17)
[2019-05-24] MEDS: LYRICA PO SCH ×3 (08:17→20:17)
[2019-05-24] MEDS: SENOKOT PO SCH ×2 (08:17→20:17)
[2019-05-24] MEDS: DUONEB (A & A) INH PRN ×2 (08:26→20:37)
--- NOTE | 2019-05-24 11:37 | GASTROENTEROLOGY PROGRESS NOTE ---
DATE: 05/24/2019 SUBJECTIVE: Ms. Islas is a 58-year-old, -Welsh female resting in bed. She complained about abdominal pain in the mid abdominal area. She said that yesterday, it was worst. She was having pain along with sweating and chills. Today, she complained about noticing dark tarry stools. The patient is currently on a clear liquid diet and was able to tolerate her diet without any nausea or vomiting. OBJECTIVE: Vital Signs: Temperature 98.1 degrees, pulse 106, respirations 22, blood pressure 139/79, oxygen saturation 96%. She is on 2 L nasal cannula. Her weight is 140 pounds. BMI is 21.3 kg/m2. General: She is alert, oriented x3, and in no acute distress. HEENT: Pale conjunctivae. No icterus. PERRL. Neck: Supple. Lungs: Clear to auscultation in the anterior cruz. Cardiovascular: The patient is tachycardic. Abdomen: Soft. Tender in the mid area. Extremities: No clubbing, no cyanosis, no edema. Pedal pulses 2+ present bilaterally. Neurologic: She is alert, oriented x3. Labs: WBCs are 7.07, RBCs 4.06, hemoglobin 12.7, hematocrit is 38.8, platelet count is 157,000. Sodium 139, potassium 4.3, chloride 105, carbon dioxide 19, anion gap 15, BUN 14, creatinine 0.7, glucose 84, calcium 8.6. Total bilirubin 0.49, AST 19, ALT 12, alkaline phosphatase 90, albumin 3.3, plasma lactate is 0.8. IMPRESSION AND PLAN: 1. Colitis. 2. Nausea and vomiting. 3. Hematemesis. 4. Rectal bleeding. 5. Constipation. 6. Tobacco abuse. 7. History of Hepatitis C PLAN: Ms. Islas is a 58-year-old, -Welsh female. She has a history of stroke and brain aneurysm with right-sided weakness, history of hepatitis C, tobacco abuse, and prior colon resection. GI is following her for her nausea, vomiting, and GI bleed. The patient's nausea and vomiting has been resolved but the patient is complaining of being constipated, but she did have one bowel movement today. For her nausea and vomiting, she is on Zofran and Phenergan as needed. The patient is also receiving Senokot for her constipation. She is on Protonix 40 mg p.o. twice a day. The plan is to do an EGD and colonoscopy tomorrow. Further plan of care will be based on the EGD and colonoscopy findings. We have discussed the risks, benefits, and alternatives of the procedure with the patient. The patient acknowledges understanding of the plan of care. Patient has been counselled on smoking cessation, she acknowledges understanding of the instructions. This plan was discussed with Dr. Winter. Please call us for any further questions or concerns. Dictated by SONG Arroyo for Eric Winter MD Physician Attestation I have seen and examined the patient. I have discussed and reviewed the note by Opal ZULETA and agree with findings and plan as documented. [facility]
--- NOTE | 2019-05-24 12:26 | PROGRESS NOTE ---
DATE: 05/24/2019 SUBJECTIVE: Today, Ms. Islas refers to be slightly better. However, she said she had a terrible night last night because of severe abdominal pain. She did say she had some bowel movement as well. She said her bowel movement was extremely dark. OBJECTIVE: Vital Signs: Blood pressure is 139/79, pulse of 93, respirations 18, temperature is 98.1 degrees. General: Ms. Islas is a 58-year-old female. She is in bed. She was not in any cardiopulmonary distress. HEENT: Mucosa is pink and moist. Anicteric. Acyanotic. Neck: Supple. Chest: Air entry was bilaterally reduced. Just faint expiratory wheezing, but no crackles. Cardiovascular: Regular rate and rhythm. No murmurs, no rubs, no gallops. GI: Abdomen was soft. Still minimally tender, but there is no guarding or rebound. There is an old supraumbilical midline surgical scar. Extremities: No pedal edema. 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 There is no focal deficit. LABORATORY DATA: CBC is within normal range. Chemistry is also completely unremarkable. The patient's C-reactive protein is up to 102. MEDICATIONS: Medications have all been reviewed. ASSESSMENT: 1. Sepsis on presentation secondary to diffuse colitis. The patient's blood cultures so far have been unremarkable, except for one which was positive and we think is a contaminant. 2. Abdominal pain secondary to diffuse colitis, presumably infectious etiology. The patient did have a rough night with a lot of pain. C-reactive protein continues to go up. Gastroenterology plans to do esophagogastroduodenoscopy and colonoscopy tomorrow. 3. Chronic obstructive pulmonary disease with [id number] exacerbation. The patient is responding well to standard of care. 4. Hypothyroidism. Will continue with Synthroid. 5. History of previous cerebrovascular accident due to brain aneurysm. The patient is status post aneurysm repair with minimum right-sided weakness. 6. Hypertension. 7. Recreational substance use (cannabinoids). The patient has been counseled. 8. Clinical volume depletion on admission, improved. In general, I think Ms. Islas is doing well this morning. However, last night, she refers to have been in a lot of pain. Her CT scan on admission reveals diffuse colitis, and we presume this is infectious in etiology. However, other possible causes eg; ischemic injury or an inflammatory injury cannot be completely ruled out. Ms. Islas is pending esophagogastroduodenoscopy and colonoscopy tomorrow. Further recommendations will depend on the results of the gastrointestinal interventions. cc: Francisco Moon MD MTDD
[2019-05-24] MEDS: ZOSYN 3.375 GM in NS 50 ML IV SCH ×2 (13:30→19:47)
[2019-05-24] MEDS ORDERED: GOLYTELY PO ONE (14:00)
[2019-05-25] MEDS: MORPHINE IV PRN ×4 (02:05→20:52)
[2019-05-25] MEDS: ZOSYN 3.375 GM in NS 50 ML IV SCH ×4 (02:05→20:51)
[2019-05-25] MEDS: PHENERGAN IV PRN ×2 (02:16→06:01)
[2019-05-25] MEDS: SOLU-MEDROL IV SCH ×2 (04:33→16:16)
[2019-05-25] MEDS: SYNTHROID PO SCH (06:18)
[2019-05-25] MEDS ORDERED: DIPRIVAN 1% ONE ×2 (06:49→08:39)
[2019-05-25] MEDS ORDERED: FENTANYL ONE (06:54)
[2019-05-25] MEDS ORDERED: XYLOCAINE-MPF 2% ONE (08:39)
--- NOTE | 2019-05-25 09:10 | ENDOSCOPY OPERATIVE NOTE ---
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 PROCEDURE PERFORMED: EGD w/ biopsy MEDICATIONS: Per Anesthesia ESTIMATED BLOOD LOSS: None CONSENT: The patient understands the risks and benefits of the procedure and understands that these r isks include, but are not limited to: sedation, allergic reaction, infection, perforation and/or bleeding. Alternative means of evaluation and treatment include, among others: physical exam, x-rays, and/or surgical intervention. The patient elects to proceed with this endoscopic procedure. DESCRIPTION OF PROCEDURE: During pre-op preparation period all mechanical and medical equipment was c hecked for proper function. Hand hygiene and appropriate measures for infection prevention was taken. After the risks, benefits and alternatives of the procedure were thoroughly explained, Informed consent was verified, confirmed and timeout was successfully executed by the treatment team. The patient was anesthetized with topical anesthesia and the UI18-[id number] ([id number]) and [id number]-[id number] ([id number]) endoscope was introduced through the mouth and advanced to the seco nd portion of the duodenum. Retroflexion was performed in the stomach and revealed a hiatal hernia. The gastroscope w as then slowly withdrawn and removed. The patient's toleration of the procedure was excellent. ESOPHAGUS: A 3 cm hiatal hernia was noted. The z-line was noted at 39cm from the incisors. The z-l ine appeared normal. STOMACH: Mild gastritis (inflammation) was found in the gastric body and gastric antrum. A biopsy wa s performed using cold forceps. DUODENUM: The duodenum was normal. ADVERSE EVENTS: There were no complications. IMPRESSIONS: 1. 3 cm hiatal hernia 2. The z-line was noted at 39cm from the incisors 3. Gastritis (inflammation) was found in the gastric body and gastric antrum; biopsy was performed 4. The duodenum was normal RECOMMENDATIONS: 1. Await biopsy results 2. Continue to colonoscopy procedure REPEAT EXAM: Eric Winter MD eSigned: Eric Winter MD 05/25/2019 9:09 AM CC: CPT CODES: 15234 Upper gastrointestinal endoscopy including esophagus, stomach, and either the du odenum and/or jejunum as appropriate; with biopsy, single or multiple ICD CODES: 789.07 Abdominal pain,generalized 578.1 Blood in stool 553.3 Diaphragmatic hernia without mention of obstruction or gangrene 535.50 Unspecified gastritis and gastroduodenitis (without hemorrhage) The ICD and CPT codes recommended by this software are interpretations from the data that the [facility] staff has captured with the software. The verification of the translation of this report to the ICD and CPT co kody and modifiers is the sole responsibility of the health care institution and practicing physician where this report was generated. [employer] will not be held responsible for the validity of the ICD and CPT codes i ncluded on this report. [employer] assumes no liability for data contained or not contained herein. CPT is a registered tra demark of the [employer]. PATIENT NAME: Carmen Islas MR#: [id number]
--- NOTE | 2019-05-25 09:19 | ENDOSCOPY OPERATIVE NOTE ---
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 PROCEDURE PERFORMED: Colonoscopy with biopsy MEDICATIONS: Per Anesthesia PREP TYPE: GoLytely
[2019-05-25] MEDS: SENOKOT PO SCH ×2 (09:55→20:52)
[2019-05-25] MEDS: LYRICA PO SCH ×3 (09:55→20:52)
[2019-05-25] MEDS: PROTONIX PO SCH ×2 (09:55→20:52)
--- NOTE | 2019-05-25 12:24 | PROGRESS NOTE ---
DATE: 05/25/2019 SUBJECTIVE: Ms. Islas, a 58-year-old, was admitted on 05/22/2019. Patient of Dr. Génesis Pederson. She came in with abdominal pain, nausea, vomiting. States that since 05/16/2019, approximately 6 days before admission, she had been having generalized abdominal pain radiating to her back at the level of umbilicus. Reports that the pain is constant, aching type. She has previous history of CVA, and she had a brain aneurysm and did undergo surgical repair for this, hypothyroidism, hypertension, hepatitis C for which she received treatment, Kam, history of bowel obstruction, underwent bowel resection, second revision of her previous bowel resection, COPD, history of GI bleed in 2015 and found erosive esophagitis and gastritis, history of hiatal hernia. Surgical history is colon resection x2, brain surgery for aneurysm, hysterectomy. Admitted with colitis. She reports that she does feel better. Seems to be doing a little bit better, a little stronger. Her bowels have moved. OBJECTIVE: Vital Signs: Temperature 98.4 degrees, pulse 80, respirations 16, blood pressure 137/76. HEENT: Pupils are equal and round. Lungs: Clear in all lung cruz. Cardiovascular: Regular rhythm and rate without murmur or S3. Abdomen: Soft. Skin: Warm and dry. IMAGING: She had an esophagogastroduodenoscopy done: Mild gastritis. Inflammation was found in the gastric body and gastric antrum. Duodenum was normal. She had a colonoscopy with biopsy. There was evidence of subtotal colectomy, ileal ulcers, normal distal sigmoid colon. No evidence of colitis given the subtotal colectomy. No evidence of recent or active GI bleed. ASSESSMENT AND PLAN: 1. Sepsis on presentation secondary to diffuse colitis. The patient had blood cultures that have been unremarkable, except for one which was positive, which we believe was contaminant. 2. Abdominal pain secondary to diffuse colitis, presumably infectious etiology. The patient seems to be improving. C-reactive protein continues to go up. Gastroenterology has done esophagogastroduodenoscopy and colonoscopy, and they have found mild gastritis in the gastric body and gastric antrum. Duodenum was unremarkable. 3. Hypothyroidism. Continue Synthroid. 4. Previous cerebrovascular accident with a brain aneurysm, and she is status post aneurysm repair. 5. Hypertension. 6. Recreational substances, cannabinoids. She has been counseled and encouraged to stop these. 7. Volume depletion on arrival. This is improved. Hematocrit 38, hemoglobin 12. BUN is 14, creatinine 0.7. Note, C-reactive protein 87, 102, 53 in sequence. REVIEW OF ORDERS: The patient is on Synthroid 50 mcg a day, methylprednisone 20 mg IV every 12 hours, Protonix 40 mg b.i.d., Lyrica 50 mg p.o. daily, Senokot 1 b.i.d., Zosyn 3.375 grams IV every 6 hours. cc: Rudy Kim MD
[2019-05-25] MEDS: DUONEB (A & A) INH PRN (16:37)
[2019-05-26] MEDS: ZOSYN 3.375 GM in NS 50 ML IV SCH ×4 (02:25→20:55)
[2019-05-26] MEDS: MORPHINE IV PRN ×6 (03:09→22:30)
[2019-05-26] MEDS: SOLU-MEDROL IV SCH ×2 (05:06→16:25)
[2019-05-26] MEDS: SYNTHROID PO SCH (06:12)
[2019-05-26] MEDS: LYRICA PO SCH ×3 (09:22→20:58)
[2019-05-26] MEDS: SENOKOT PO SCH (09:22)
[2019-05-26] MEDS: PROTONIX PO SCH ×2 (09:22→20:55)
--- NOTE | 2019-05-26 12:19 | PROGRESS NOTE ---
DATE: 05/26/2019 SUBJECTIVE: She does feel better. Bowels seem to moving. We are going to stop her Senokot. She remains afebrile. OBJECTIVE: Vital Signs: Temperature 97.7 degrees, pulse 54, respirations 22, blood pressure 108/68. Eyes: Pupils are equal and round. Lungs: Clear in all lung cruz. Cardiovascular exam: Regular rhythm and rate without murmur or S3. Abdomen: Abdomen is soft. Skin: Skin is warm and dry. ASSESSMENT AND PLAN: 1. Sepsis on presentation with diffuse colitis. The patient had blood cultures that have been unremarkable, except for one that was positive, suspect it was contaminant. 2. Abdominal pain secondary to diffuse colitis, presumably infectious etiology. Patient seems better. C-reactive protein has been pretty high. She had an esophagogastroduodenoscopy done and colonoscopy; they found mild gastritis in the gastric body. 3. Hypothyroidism appears euthyroid on Synthroid. 4. Previous cerebrovascular accident with brain aneurysm. She is status post aneurysm repair. 5. Hypertension. 6. Recreational substance cannabinoids. 7. Volume depletion on arrival, which is better. LABS: Her lab from the 30th: Sodium 139, potassium 4.3, chloride 105. BUN 14, creatinine 0.7. ORDERS: The patient is on Zosyn 3.375 g IV q. 6 hours. Seems to be doing better. Hopefully, we can go home soon. She has 1 blood culture positive for coagulase negative Staphylococcus. cc: Rudy Kim MD
--- NOTE | 2019-05-26 22:30 | PROVIDER PROGRESS NOTE ---
Progress Note S: No acute overnight events. Afebrile. Patient reports improving abdominal pain. No N/V. She is tolerating full liquids. O: Last Vital Signs Temp 97.7 F 05/26/19 19:50 Pulse 57 L 05/26/19 19:50 Resp 16 05/26/19 16:05 BP 125/75 05/26/19 19:50 Pulse Ox 98 05/26/19 19:50 Height 5 ft 8 in Weight 140 lb GEN: awake, alert, NAD HEENT: anicteric, MMM NECK supple no jvd PULM: CTAB no wheezing ABD: soft, ND, mild TTP throughout, no rebound or guarding, BS+ EXT: no cce NEURO: nonfocal LABS: No AM labs EGD 05/25 ESOPHAGUS: A 3 cm hiatal hernia was noted. The z-line was noted at 39cm from the incisors. The z-line appeared normal. STOMACH: Mild gastritis (inflammation) was found in the gastric body and gastric antrum. A biopsy was performed using cold forceps. DUODENUM: The duodenum was normal. Colonoscopy 05/25 COLON FINDINGS: An end-to-side ileo-sigmoid anastomosis was found at 30cm from the anal verge. The rectum and distal sigmoid mucosa appeared normal. Severe superficial ulceration was found at 40cm from the anal verge within the neoterminal ileum. Scattered linear ulcers were found along ileal folds that were mild from 40 to 70cm from anal verge. Proximal to 70cm the ileal mucosa was healthy appearing. Scope was advanced 120cm from anal verge. Biopsies were obtained with cold biopsy forceps of the ileal ulcers to rule out Crohn's vs. ischemic vs. infectious etiology. ASSESSMENT AND PLAN: Ms. Carmen Islas is a 58-year-old woman with treated hepatitis C, prior CVA 2/2 ruptured brain aneurysm with residual right-sided weakness, tobacco abuse, and prior colonic obstruction s/p subtotal colectomy with acute N/V/D with scant hematemesis/rectal bleeding found to have colitis on imaging. EGD and colonoscopy yesterday showed hiatal hernia, mild gastritis, and ileal ulcers s/p biopsy. Primary team started patient on empiric steroids on 05/23 and zosyn 1 . Symptoms are improving. Holding bowel regimen. Stool studies negative. # Ileal ulcers: on empiric steroids and antibiotics; awaiting expedited biopsies to r/o Crohn's # Tobacco abuse: counseled on smoking cessation # Gastritis: decreased PPI to once daily # Hiatal hernia: noted # Elevated CRP: noted Will follow with you. Please call with questions.
[2019-05-27] MEDS: ZOSYN 3.375 GM in NS 50 ML IV SCH ×4 (01:30→20:02)
[2019-05-27] MEDS: SOLU-MEDROL IV SCH ×2 (04:09→16:56)
[2019-05-27] MEDS: MORPHINE IV PRN ×5 (04:12→23:22)
[2019-05-27] MEDS: SYNTHROID PO SCH (06:27)
[2019-05-27] MEDS: PROTONIX PO SCH (06:27)
[2019-05-27 08:03] LABS: BASO# 0.09 X1000 (0.0-0.2); BASO% 1.4 % (0.0-0.8); EOS# 0.03 X1000 (0.0-0.7); EOS% 0.5 % (0.0-10.0); HEMATOCRIT 41.1 % (37.0-47.0); HEMOGLOBIN 13.4 g/dL (12.0-16.0); IMM GRAN# 0.02 X1000 (0.0-0.04); IMM GRAN% 0.3 % (0.0-0.5); LYMPH# 0.87 X1000 (1.2-3.4); LYMPH% 13.3 % (20.5-51.1); MCH 31.1 PG (27-31); MCHC 32.6 g/dL (33-37); MCV 95.4 FL (81-99); MONO# 0.56 X1000 (0.11-0.59); MONO% 8.6 % (1.7-9.3); MPV 10.9 FL (7.4-10.4); NEUT# 4.97 X1000 (1.4-6.5); NEUT% 75.9 % (42.2-75.2); PLT 196 X1000 (130-400); RBC 4.31 XMIL (4.2-5.4); RDW 13.5 % (11.5-14.5); WBC 6.54 X1000 (4.8-10.8)
--- NOTE | 2019-05-27 08:53 | PROGRESS NOTE ---
DATE: 05/27/2019 This is a 58-year-old patient of Dr. Génesis Hernandez. A 58-year-old that came in on 05/22/2019. She states that since May 16, approximately 6 days before admission, she was having generalized abdominal pain radiating to her back, level of her umbilicus. Pretty severe pain. The pain is constant and aching type. She still has a good amount of pain. It may have lessened just a little bit. She is getting IV morphine. PAST MEDICAL HISTORY: 1. Previous CVA for which she has had a brain aneurysm. Did undergo surgical repair for this. She has some residual right-sided weakness. 2. Hypothyroidism. 3. Hypertension. 4. Hepatitis C for which she received treatment of Harvoni. 5. History of bowel obstruction and perforation. She underwent bowel resection and a second revision of previous bowel resection. 6. COPD. 7. History of gastrointestinal bleed in 2014, believed to be secondary to EGD findings of erosive esophagitis and gastritis. 8. Hiatal hernia. PAST SURGICAL HISTORY: 1. Colon resection x2. 2. Brain surgery for aneurysm. 3. Hysterectomy. She was admitted with colitis and has been in a good deal of discomfort. She says that she feels constipated but she has just had nothing but dark liquid stools. Remains afebrile. Temperature 97.7 degrees, pulse 116, respirations 19, blood pressure 118/65. Pupils are equal and round. No distended neck veins. Lungs are clear. Abdomen is soft. Her pain, she states, is in both lower quadrants. It seems to come and go. She does have positive bowel sounds. No pedal edema. ASSESSMENT AND PLAN: 1. Ileal ulcers. Esophagogastroduodenoscopy and colonoscopy done 2 days ago showed hiatal hernia, mild gastritis, and ileal ulcers, biopsied. Expect possible results of biopsies. Rule out Crohn's disease. 2. Tobacco abuse. Counseled on smoking cessation. 3. Gastritis. She is on a proton pump inhibitor once a day. 4. Hiatal hernia. 5. Elevated CRP is noted. REVIEW OF HER ORDERS: Getting morphine 2 mg IV q.3 hours p.r.n., Synthroid 50 mcg a day, methylprednisone 20 mg IV q.12, Protonix 40 mg a day, and Zosyn 3.375 g daily. We will check an abdominal KUB to see and make sure she is not having high impaction. REVIEW OF LABS: From today, white count 6540, hematocrit 41, platelet count 196,000. Chemistry: This is on the . Sodium 139, potassium 4.3, chloride 105, BUN 14, creatinine 0.7. Her C- reactive proteins have been above 80. She had 87, 102, and 53. The one on the seemed to come down. She is getting methylprednisone 20 mg q.12. cc: Rudy Kim MD
[2019-05-27] MEDS: DUONEB (A & A) INH PRN ×2 (09:17→15:49)
--- NOTE | 2019-05-27 09:49 | Diag Imaging Result Doc PS360 ---
EXAM: KUB ABDOMEN 05/27/2019 HISTORY: look for constipation TECHNIQUE: KUB COMMENT: There is gas in the colon and small bowel in a nonspecific pattern. The stomach is not distended. There are multiple staple lines over the right lower quadrant and there are surgical clips in the right upper quadrant. There is no evidence of organomegaly or mass. There may be some stool in the rectum which is not entirely included on the study. IMPRESSION: Nonspecific abdomen. Electronically signed by Nawaf Paiz 05/27/2019 9:47 AM
[2019-05-27] MEDS: LYRICA PO SCH ×3 (09:56→20:02)
--- NOTE | 2019-05-27 11:07 | GASTROENTEROLOGY PROGRESS NOTE ---
DATE: 05/27/2019 SUBJECTIVE: Ms Islas is a 58-year-old female resting in bed. She has denied any nausea, vomiting, but did complain about abdominal pain in the mid abdominal area. OBJECTIVE: Vital Signs: Temperature 97.7 degrees, pulse 60, respirations 14, blood pressure 118/65, oxygen saturation 98% on 2 L nasal cannula. The patient's weight is 140 pounds, BMI is 21.3 kg/m2. General: She is alert, oriented x3, in no acute distress. HEENT: Pale conjunctivae. No icterus. PERRL. Neck: Supple. Lungs: Clear to auscultation in the anterior cruz. Cardiovascular: Regular rate and rhythm. Abdomen: Soft. Tender in the mid area. Active bowel sounds heard in all 4 quadrants. Extremities: No clubbing, no cyanosis, no edema. Pedal pulses 2+ present bilaterally. Neurologic: She is alert and oriented x3. LABORATORY DATA: WBCs of 6.54, RBC 4.31, hemoglobin 13.4, hematocrit of 41.1, platelet count is 196,000. Sodium 139, potassium 4.3, chloride 105, carbon dioxide 19, anion gap 15, BUN 14, creatinine 0.7, glucose 84. IMAGING: Abdomen x-ray has shown that there is nonspecific abdomen. IMPRESSION AND PLAN: Nausea and Vomiting Rectal bleeding Ileal ulcers Gastritis Colitis Hiatal Hernia Tobacco abuse History of hepatitis C PLAN: Ms Islas is a 58-year-old female with a history of hepatitis C, stroke, brain aneurysm with right-sided weakness. GI has been following her nausea, vomiting, diarrhea, and hematemesis. An EGD and colonoscopy was done on 05/25/2019. Colonoscopy showed ileal ulcers. Biopsies taken. EGD showed gastritis and a 3 cm hiatal hernia. Awaiting the results of the biopsy. Patient is currently on GI prophylaxis, Protonix 40 mg p.o. daily. She is receiving antibiotic Zosyn. For her nausea and vomiting, she is on Phenergan and Zofran. The patient has denied any nausea and vomiting today and is able to tolerate her diet well. We have ordered an IBD panel to r/o Crohn's disease. We will continue to monitor the patient and follow the plan of care per PCP. This plan was discussed with Dr. López. Please call us for any further questions or concerns. Dictated by SONG Arroyo for Andrews López MD cc: Andrews López MD I have seen and examined the patient myself and I agree with the above plan of care. I have discussed the above with the patient and all questions were answered. Please call us with any further questions. BRANDEE
[2019-05-28] MEDS: ZOSYN 3.375 GM in NS 50 ML IV SCH ×4 (02:44→21:42)
[2019-05-28] MEDS: SOLU-MEDROL IV SCH (04:41)
[2019-05-28] MEDS: MORPHINE IV PRN ×5 (04:42→21:42)
[2019-05-28] MEDS: SYNTHROID PO SCH (06:08)
[2019-05-28] MEDS: PROTONIX PO SCH (06:08)
[2019-05-28] MEDS: DUONEB (A & A) INH PRN ×2 (09:10→15:25)
[2019-05-28] MEDS: LYRICA PO SCH ×3 (09:22→21:42)
--- NOTE | 2019-05-28 12:57 | GASTROENTEROLOGY PROGRESS NOTE ---
DATE: 05/28/2019 SUBJECTIVE: Ms. Islas is a 58-year-old female resting in bed. The patient mentioned not feeling well today. She said that when she got up this morning she felt like she was nauseated, and she had some abdominal pain in the mid abdominal area. OBJECTIVE: Vital Signs: Temperature 97.9, pulse 72, respirations 16, blood pressure 107/66, oxygen saturation 96% on 2 L nasal cannula. The patient's weight is 140 pounds. BMI is 21.3 kg/m2. General: She is alert, oriented x3, in no acute distress. HEENT: Pale conjunctivae. No icterus. PERRL. Neck: Supple. Lungs: Clear to auscultation in the anterior cruz. Cardiovascular: Regular rate and rhythm. Abdomen: In the mid abdominal area, active bowel sounds heard in all 4 quadrants. Extremities: No clubbing, no cyanosis, no edema. Pedal pulses 2+ present bilaterally. Neurologic: Alert, oriented x3. LABS: WBC 6.54, RBC 4.31, hemoglobin 13.4, hematocrit 41.1, platelets 196,000, patient has no recent chemistries. IMAGING: Abdomen X-ray yesterday showed nonspecific abdomen. IMPRESSION AND PLAN: Nausea and Vomiting Rectal bleeding Ileal ulcer Gastritis Colitis Hiatal Hernia Tobacco abuse History of Hepatitis C PLAN: Ms. Islas is a 58 year old female with the history of hepatitis C, stroke, brain aneurysm with right sided weakness. GI is following her for N/V/diarrhea and hematemesis. An EGD and colonoscopy was done on 05/25/19. Colonoscopy findings were ileal ulcers, biopsies were taken. EGD showed gastritis and a 3 cms hiatal hernia. Stomach biopsy revealed chronic inactive gastritis and negative H-pylori. Ileum biopsy revealed fragments of reactive small bowel mucosa with patchy active inflammation and ulceration. We have discontinued patients steroids, patient does not have signs of Crohn's disease. Patient is currently on GI prophylaxis Protonix 40 mg PO daily. She is on antiemetic zofran and phenegran for her nausea and vomiting. Counselled patient on smoking cessation and discussed the risk associated with it, patient acknowledges understanding of the instructions. We will follow her up as an outpatient in 2-4 weeks. We will continue to monitor her and follow the plan of care per PCP. This plan was discussed with Dr. Winter. Please call us with any further questions or concerns. Dictated by SONG Arroyo for Eric Winter MD Physician Attestation I have seen and examined the patient. I have discussed and reviewed the note by Opal ZULETA and agree with findings and plan as documented. MTDD
--- NOTE | 2019-05-28 13:35 | PROGRESS NOTE ---
DATE: 05/28/2019 SUBJECTIVE: Ms. Islas does feel a little better. Results of the biopsy, she does not have Crohn's. The nausea is better. The pain is much better and she states she thinks she might like to try and go home tomorrow. PHYSICAL EXAMINATION: Vital signs: She remains afebrile, temperature 97.9 degrees, pulse 72, respirations 16, blood pressure 107/66. HEENT: Pupils are equal and round. Lungs: Clear in all lung cruz. Cardiovascular: Regular rhythm and rate without murmur or S3. Abdomen: Soft. Skin: Warm and dry. Urine output is 1200 mL. ASSESSMENT AND PLAN: She has a history of hepatitis C, history of stroke, brain aneurysm, right- sided weakness, and came in with nausea, vomiting and lower abdominal pain. EGD and colonoscopy done on 05/25/2019 showed ileal ulcers. Biopsies taken. EGD showed gastritis and a 3 cm hiatal hernia. She does feel better. Continue her GI treatment with Protonix 40 mg a day. She is eating so hope to send her home tomorrow. REVIEW OF HER ORDERS: I do not see any change at this point. She is getting morphine for pain 2 mg IV q.3 hours p.r.n. and the pain has diminished quite a bit. cc: Rudy Kim MD
[2019-05-29] MEDS: ZOSYN 3.375 GM in NS 50 ML IV SCH ×2 (01:36→09:50)
[2019-05-29] MEDS: MORPHINE IV PRN ×7 (01:37→21:28)
[2019-05-29] MEDS ORDERED: CALMOSEPTINE OINTMENT TOP PRN (01:44)
[2019-05-29] MEDS: SYNTHROID PO SCH (06:29)
[2019-05-29] MEDS: PROTONIX PO SCH ×2 (06:29→21:27)
[2019-05-29] MEDS: LYRICA PO SCH ×3 (09:49→21:27)
[2019-05-29] MEDS: DUONEB (A & A) INH PRN ×2 (10:59→15:50)
--- NOTE | 2019-05-29 11:21 | PROGRESS NOTE ---
DATE: 05/29/2019 SUBJECTIVE: She still has lot of bloating after eating. She is a little afraid to go on home. She has still some loose stools. She lives alone. OBJECTIVE: Vital signs: Temperature 97.5 degrees, pulse 78, respirations 19, blood pressure 93/54. HEENT: Pupils are equal and round. Lungs: Clear in all lung cruz. Cardiovascular: Regular rhythm and rate without murmur or S3. Abdomen: Soft. Skin: Warm and dry. ASSESSMENT AND PLAN: 1. History of hepatitis C, history of past stroke and brain aneurysm, right-sided tommie weakness, presented with nausea and vomiting, abdominal pain. EGD and colonoscopy done on 05/25/2019 showed ileal ulcers. Biopsies did not reveal any inflammatory bowel disease. EGD did show gastritis and a 3 cm hiatal hernia. She is on Protonix. Seems to be improving. I told her she may have some dyspepsia for another couple weeks and I may go ahead and put her on high- dose Protonix at 40 mg twice a day. 2. History of primary hypothyroidism. She is on Synthroid. Appears to be euthyroid. 3. I am going to stop her Zosyn. No sign of infectious etiology. She did have 1 blood culture that was coagulase-negative Staphylococcus which I believe is a contaminant, and her influenza screen for A and B was negative. cc: Rudy Kim MD
[2019-05-29] MEDS: CARAFATE LIQUID PO SCH ×2 (16:02→21:27)
[2019-05-29] MEDS: PHENERGAN IV PRN (21:28)
[2019-05-30] MEDS: CARAFATE LIQUID PO SCH ×2 (01:16→09:29)
[2019-05-30] MEDS: MORPHINE IV PRN ×4 (01:18→13:12)
[2019-05-30] MEDS: SYNTHROID PO SCH (06:20)
[2019-05-30] MEDS: PROTONIX PO SCH (09:29)
[2019-05-30] MEDS: LYRICA PO SCH (09:29)
[2019-05-30 11:51] VITALS: BP 78/53
--- NOTE | 2019-05-30 13:59 | DISCHARGE SUMMARY ---
ADMISSION DATE: 05/22/2019 DISCHARGE DATE: 05/30/2019 HISTORY OF PRESENT ILLNESS: She is a patient of Génesis Pederson. She came in with abdominal pain, nausea, vomiting, and diarrhea on 05/22/2019. This is a 58-year-old, black female, who states that since 05/16/2019, approximately 6 days before admission, she had had general abdominal pain that radiated through to her back and at the level of her umbilicus. Reports that the pain was a constant, aching type that became sharp at times, had been constant since onset though. When she arrived in the emergency room, she was given IV morphine and helped her improve the pain. On 05/16/2019, six days ago, she also was having diarrhea. States that this did stop on 05/20/2019, about 2 days before admission. Denies any diarrhea or any bowel movement since that time. Reports that she is not really eating much or drinking much. The day before admission, was having nausea and vomiting, several episodes of vomiting. Denied any fever, body aches, chills. No recent travel, no pets, and nobody around her has had similar symptoms. She reported that she did have some hematemesis with her nausea and vomiting when it first began, but this seemed to have resolved, and then her diarrhea, sometimes it appeared dark and black. She denied any use of iron tablets or Pepto-Bismol, and no [id number]-[id number] medications, such as aspirin, ibuprofen, naproxen, or BC powders. She drinks a wine cooler a day, and reports the wine cooler is called a screwdriver, although she states just 1 a day is all she drinks. Denies any dizziness. In the emergency room, slightly tachycardiac on arrival. Blood pressure was 104/78. She was put on some oxygen. She was given 2 L of normal saline, and then received a third liter, I believe. She appeared to be intravascularly volume depleted. Given some Zofran for nausea. PAST MEDICAL HISTORY: 1. History of previous CVA, in which the patient has had a brain aneurysm, did undergo surgical repair of this. Since that time, she did have a little residual right-sided weakness. 2. Hypothyroidism. 3. Hypertension. 4. Hepatitis C, for which she has received Harvoni treatment. 5. History of bowel obstruction and perforation, underwent bowel resection and second revision to take down her colostomy. She may have had a revision of the previous bowel resection as well. 6. COPD. 7. History of upper GI bleed in 2014, believe secondary to EGD findings of erosive esophagitis and gastritis. 8. Hiatal hernia. PAST SURGICAL HISTORY: 1. Colon resection x2. 2. Brain surgery for aneurysm. 3. Hysterectomy. HOSPITAL COURSE: Admitted with colitis and nausea. She had a GI consult. She underwent a colonoscopy with some biopsies. There were some ileal ulcers, evidence of subtotal colectomy, normal distal sigmoid colon and rectum, no evidence of colitis given subtotal colectomy, no evidence of recent active GI bleeding in the lower intestine. She had an EGD, and they found a 3 cm hiatal hernia. Z-line was noted at 39 cm from incisors. Gastritis was found in the gastric body, gastric antrum, and biopsy was performed. Duodenum was normal. She continued to improve. Kept her on proton pump inhibitors, and felt she could go home on 05/30/2019. They did order an IBD panel, but saw no evidence of any Crohn's disease or inflammatory bowel disease. DISCHARGE PHYSICAL EXAMINATION: Vital Signs: Afebrile, temperature 98.2 degrees, pulse 80, respirations 19, blood pressure 78/53. HEENT: Pupils are equal and round. Lungs: Clear in all lung cruz. Cardiovascular: Regular rhythm and rate without murmur or S3. LABORATORY DATA: On 05/27/2019, hemoglobin was 13, hematocrit 41. Electrolytes look good, on 05/24/2019 were stable, sodium 139, potassium 4.3, chloride 105, BUN 14, creatinine 0.7. PLAN: Plan to discharge her home. We will discharge her home with Synthroid 50 mcg daily. She will get Protonix 40 mg p.o. twice a day for the next 4 weeks, then cut it down to once a day, Lyrica 50 mg a day, Carafate 1 gram. Will give her the tablets every 6 hours for 4 weeks, and then she can stop that. We have held her amlodipine, but I think we can restart that, and she can go back on her inhaler, which is Anoro Ellipta, a combination of steroid and long-acting beta agonist. Looking back at her blood pressures, they have been a little on the low side, so we will continue to hold the Norvasc, and she is to follow back with her primary care and GI in a couple weeks. cc: Rudy Kim MD
== END 2019-05-30 16:58 | disposition home health service (06) | DRG 392 ==
LOC: SUPCPDRO → ED 16:14 → SUATTDRO 05-22 06:41 → 1N 05-22 06:41 → 3N 05-26 13:11
PROVIDERS: ATTEND Emergency Medicine

== ENCOUNTER 2019-06-22 09:41 | Inpatient (IN) ==
[2019-06-22] MEDS ORDERED: MORPHINE IV ONE ×2 (10:01→16:42)
[2019-06-22] MEDS ORDERED: TORADOL IV ONE (10:01)
[2019-06-22] MEDS ORDERED: NS 1,000 ML IV ONE ×2 (10:01)
[2019-06-22] MEDS ORDERED: ZOFRAN IV ONE ×2 (10:01→16:42)
[2019-06-22] MEDS ORDERED: SODIUM CHLORIDE 0.9% INJ ONE (10:03)
[2019-06-22] MEDS ORDERED: BENTYL IM ONE (10:03)
[2019-06-22] MEDS ORDERED: PEPCID IV ONE (10:03)
--- NOTE | 2019-06-22 11:05 | Diag Imaging Result Doc PS360 ---
CHEST-1 VIEW - 06/22/2019 INDICATION: upper abd pain, r/o free air under diaphragm COMPARISON: 05/22/2019 FINDINGS: There is probably mild COPD. No evidence of free air. The lungs are clear. Heart size is normal. No pneumothorax or pleural effusion. IMPRESSION: No acute disease. Electronically signed by Elmer Torres 06/22/2019 11:03 AM
--- NOTE | 2019-06-22 11:29 | EKG Report ---
Test Performed on : 06/22/2019 10:07:53 AM Test Reason : uper abd pain Blood Pressure : / mmHG Vent. Rate : 098 BPM Atrial Rate : 098 BPM P-R Int : 118 ms QRS Dur : 078 ms QT Int : 364 ms P-R-T Axes : 078 075 049 degrees QTc Int : 464 ms Normal sinus rhythm. Right atrial enlargement Borderline ECG When compared with ECG of 21-MAY-2019 17:53, (Unconfirmed) No significant change was found Unconfirmed Result
[2019-06-22 11:35] LABS: BASO# 0.03 X1000 (0.0-0.2); BASO% 0.4 % (0.0-0.8); EOS# 0.09 X1000 (0.0-0.7); EOS% 1.3 % (0.0-10.0); HEMATOCRIT 44.5 % (37.0-47.0); HEMOGLOBIN 14.7 g/dL (12.0-16.0); LYMPH# 1.81 X1000 (1.2-3.4); LYMPH% 26.4 % (20.5-51.1); MCH 30.8 PG (27-31); MCV 93.1 FL (81-99); MONO# 1.01 X1000 (0.11-0.59); MONO% 14.7 % (1.7-9.3); MPV 11.6 FL (7.4-10.4); NEUT# 3.92 X1000 (1.4-6.5); NEUT% 57.2 % (42.2-75.2); PLT 225 X1000 (130-400); RBC 4.78 XMIL (4.2-5.4); RDW 14.3 % (11.5-14.5); WBC 6.86 X1000 (4.8-10.8)
[2019-06-22 11:39] LABS: INR 1.13; PROTIME 14.7 Seconds (11.0-16.0); PTT 29.1 Seconds (22.3-41.8)
[2019-06-22 12:08] LABS: AGAP 15; ALB/GLOB RATIO 1.4; ALBUMIN 4.3 g/dL (3.5-5.0); ALKALINE PHOSPHATASE 392 U/L (32-104); BUN 6 mg/dL (8-22); CALCIUM 10.5 mg/dL (8.8-10.2); CHLORIDE 104 mmol/L (98-107); CK PROFILE 53 U/L (24-173); COSMO 280; CREATININE 0.8 mg/dL (0.5-0.9); ESTIMATED GFR > 60; GLUCOSE 78 mg/dL (70-104); GOT 259 U/L (10-30); GPT 236 U/L (10-36); POTASSIUM 3.9 mmol/L (3.5-5.1); SODIUM 142 mmol/L (136-145); TCO2 23 mmol/L (25-35); TOTAL BILIRUBIN 6.72 mg/dL (0.20-1.00); TOTAL PROTEIN 7.4 g/dL (6.3-8.3)
[2019-06-22 14:25] LABS: URINE SOURCE CLEAN CATCH
[2019-06-22 14:40] LABS: BILIRUBIN URINE MODERATE (NEGATIVE); BLOOD URINE NEGATIVE (NEGATIVE); COLOR YELLOW; GLUCOSE URINE NEGATIVE (NEGATIVE); KETONE URINE NEGATIVE (NEGATIVE); LEUKOCYTES URINE NEGATIVE (NEGATIVE); NITRITE URINE NEGATIVE (NEGATIVE); PROTEIN URINE 30 mg/dL (NEGATIVE); TURBIDITY URINE CLEAR (CLEAR); UROBILINOGEN URINE 3 mg/dL (NORMAL)
[2019-06-22 14:48] LABS: UR EPITHELIAL CELLS <10 /HPF (<10); URINE BACTERIA NEGATIVE /HPF; URINE RBC <10 /HPF (<10); URINE WBC <10 /HPF (<10)
--- NOTE | 2019-06-22 16:30 | Diag Imaging Result Doc PS360 ---
EXAM: CT ABD/PELVIS W/IV CONT ONLY INDICATION: colitis TECHNIQUE: This exam was performed using automated exposure control, adjustment of mA or kV according to patient size, and/or use of iterative reconstruction technique. COMPARISON: 05/31/2019 FINDINGS: There has been a prior cholecystectomy. There is stable mild compensatory biliary dilatation. The liver, spleen, pancreas, and adrenal glands are grossly unremarkable. There are a few stable small renal cysts. The kidneys are unremarkable, otherwise. The urinary bladder is unremarkable. There is evidence of a prior hysterectomy. There is a surgical staple line associated with the colon. There is moderate gaseous distention of the colon that is nonspecific but there is no significant wall thickening to suggest colitis. There are a few fluid-filled loops of small bowel in the pelvis with mild distention likely representing mild ileus, perhaps from mild enteritis. However, there is no significant wall thickening involving the small bowel unlike the previous CT. There is nothing that would necessarily suggest bowel obstruction. A partial bowel obstruction is possible, however. The remainder of the GI tract is essentially unremarkable. There is trace free fluid layering in the pelvis that is similar to the previous study. No focal inflammatory changes are appreciated. IMPRESSION: 1.Moderate gaseous distention of the colon and mild distention and air-fluid levels involving small bowel loops in the pelvis that are nonspecific. Consider ileus. Low-grade bowel obstruction is less likely. 2.No colonic wall thickening identified to indicate colitis. 3.Trace pelvic free fluid that is stable. Electronically signed by Honorio Madden 06/22/2019 4:28 PM
--- NOTE | 2019-06-22 16:55 | PROVIDER DOCUMENTATION ---
This chart was entered by Aretha Dejesus Scribe, acting as scribe for Dalton Morgan MD. HPI-Abdominal Pain/GI Problem - General Chief Complaint: Abdominal Pain Stated Complaint: STOMACH PAIN Time Seen by Provider: 06/22/19 09:53 Source: patient Allergies/Adverse Reactions: Patient Allergies Allergy/AdvReac Type Severity Reaction Status Date / Time No Known Allergies Allergy Unverified 06/22/19 11:50 Home Medications: Home Medication List Medication Instructions Recorded Confirmed Last Taken Type Pregabalin [Lyrica] 50 mg PO TID 08/30/14 06/22/19 06/15/15 14:00 History Levothyroxine [Synthroid] 50 microgm PO QAM 06/16/15 06/22/19 06/15/15 14:00 History Umeclidinium/Vilanterol [Anoro 1 puff INH DAILY 05/22/19 06/22/19 Unknown Histo ry Ellipta 62.5-25 Mcg INH] - History of Present Illness-ABD Nature of Presenting Problems: 58 yobf presents to the ed with c/o abdomninal pain with nausea and vomiting for last 9 days. pt was recently released from hosp due to colitis. pt sts pain is constant and severe and is worse with movement or eating and a heating pads decreased severity of pain. pt admits to no BM for 2 days and sts pain worsened when she ate a tuna sandwich 2 days ago. pt on exam is writhing in pain on the bed during exam Abdominal Pain Onset Location: reports: generalized abdomen Quality of Pain: reports: aching, cramping Severity in ED: reports: severe Onset/Duration: reports: other (9 days) Timing: reports: still present, constant, getting worse Activities at Onset: reports: eating Modifying Factors: improves with: other (heating pad). worse with: eating, mo vement Associated Symptoms: reports: constipation, nausea, vomiting. denies: back/neck pain, chest pain, cough, diarrhea, fever/chills, shortness of breath Last BM: 2 days ago Dark Stools Present?: reports: none noticed Rectal Bleeding: reports: none # of Diarrhea Episodes: 0 Rectal Pain: reports: none # of Vomiting Episodes: 5 (multiple times yellow with blood tinged) Emesis Description: reports: other (yellow with blood tinged) Bruising or Bleeding Gums?: No Similar Symptoms Previously?: Yes (colitis) Recently seen or treated by another doctor?: Yes (recently dc from hosp) Review of Systems - Adult - REVIEW OF SYSTEMS - ADULT Constitutional: denies: chills, fever Eyes: reports: no symptoms reported Ears, Nose, Mouth & Throat: reports: no symptoms reported Cardiovascular: denies: chest pain, palpitations Respiratory: denies: shortness of breath, wheezing Gastrointestinal: reports: abdominal pain, constipation, nausea, vomiting. denies: diarrhea Genitourinary: reports: no symptoms reported Musculoskeletal: reports: no symptoms reported Integumentary: reports: no symptoms reported Neurological: denies: dizziness/vertigo, headache/migraines Psychiatric: reports: no symptoms reported Endocrine: reports: no symptoms reported Hematologic/Lymphatic: reports: no symptoms reported Allergic/Immunologic: reports: no symptoms reported All Other Systems: Reviewed and Negative Past History - Adult - PAST MEDICAL HISTORY-ADULT Review of Records: reports: Old Records Reviewed, Nursing Assessment Review, Medications Reviewed, Social history reviewed & non-contributory. Major Childhood Illnesses: reports: denies history Cardiovascular: reports: HTN Respiratory: reports: COPD Gastrointestinal: reports: colitis Obstetrical/Gynecological: reports: denies history Genitourinary: reports: denies history Musculoskeletal: reports: denies history Neurological: reports: CVA, other (brain aneurysm) Psychiatric: reports: denies history Endocrine/Immune: reports: thyroid disorder Other Conditions: reports: denies history - PRIOR SURGERIES/PROCEDURES Surgical/Procedure History: reports: hysterectomy, bowel surgery, other (colon resection) - PRIOR HOSPITALIZATIONS Prior Hospitalizations: reports: none - IMMUNIZATION STATUS Childhood Immunizations: See Nurse Assessment Flu Vaccine: See Nurse Assessment - FAMILY HISTORY Family History: reviewed, not pertinent - SOCIAL HISTORY Smoking: cigarettes, less than 1 pack/day Provider spent 3-5 mins advising pt. on dangers of tobacco.: Discussed manners to quit use, and f/u contacts for add'l counseling. Substance Use: alcohol Alcohol Use Frequency: every day Number of drinks per typical drinking period:: 2 drinks Living Situation: family Physical Exam-General - PHYSICAL EXAM-ADULT Initial Vital Signs Reviewed: Yes - CONSTITUTIONAL General Appearance: alert, moderate distress - EYES Eyes: PERRL/EOMI, pink conjunctivae - HEAD, EARS, NOSE, MOUTH & THROAT HENMT: normocephalic/atraumatic, moist mucous membranes, dental decay - NECK Neck: non-tender, full range of motion, supple, normal inspection - RESPIRATORY Respiratory: chest non-tender, lungs clear, normal breath sounds - CARDIOVASCULAR Cardiovascular: normal peripheral pulses, regular rate, rhythm - CHEST (BREASTS) Chest/Breast: deferred - GASTROINTESTINAL (ABDOMEN) Abdominal Exam: soft, abnormal bowel sounds (hyperactive), guarding, tenderness (diffuse). negative: distended, rigid, rebound - GENITOURINARY Female Genitalia/Pelvic Exam: deferred Rectal Exam: deferred Hemoccult Exam: deferred - LYMPHATIC Lymphatic: no adenopathy - MUSCULOSKELETAL Back Exam: normal inspection, no CVA tenderness, no vertebral tenderness Extremity: normal range of motion, non-tender, normal inspection - SKIN Integumentary: normal color, normal turgor, warm/dry - NEUROLOGIC Neurologic: grossly normal - PSYCHIATRIC Psych/Mental Status: normal thought content, normal thought process, oriented x 3 Progress - PLAN OF CARE/RESULTS Progress/Plan/Lab Results: Vital Signs - 8 hr 06/22/19 09:44 Temperature 97.9 F Pulse Rate 71 Respiratory Rate 18 Blood Pressure 115/77 O2 Sat by Pulse Oximetry 100 Result Diagrams: 06/22/19 10:51 06/22/19 10:51 - REASSESSMENT Reassessment #1 Time Reassessed: 16:43 Status: improving (Pain is better after meds, including morphine and zofran, but still hurting, so will re-dose with morphine. It is not clear the cause of sudden increase in Bili and LFTs from earlier this month. Will ask hospitalist to admit to find out why) - EKG 1 Time of EKG reading by physician:: 10:07 EKG Read and Signed by:: Dalton Morgan EKG Interpretation (*Must complete 3 of following elements*): Normal (borderline) Rate: 98 Rhythm: nsr [place]: normal QRS: normal [place] Interval: normal ST Wave: normal Comments: right atrial enlargement - XRAY 1 XRAY: Bilateral XRAY Study: Chest Impression: See EMR Report (CHEST-1 VIEW - 06/22/2019 INDICATION: upper abd pain, r/o free air under diaphragm COMPARISON: 05/22/2019 FINDINGS: There is probably mild COPD. No evidence of free air. The lungs are clear. Heart size is normal. No pneumothorax or pleural effusion. IMPRESSION: No acute disease. Electronically signed by Elmer Torres 06/22/2019 11:03 AM 06/22/19 1103 Interpreting Physician: Elmer Torres MD Dictated Date/Time: 06/22/19 1102 cc: Dalton Morgan MD; Génesis Hernandez MD) - CT/MRI 1 CT Study: Abdomen Impression: Abnormal, See EMR Report ( EXAM: CT ABD/PELVIS W/IV CONT ONLY INDICATION: colitis TECHNIQUE: This exam was performed using automated exposure control, adjustment of mA or kV according to patient size, and/or use of iterative reconstruction technique. COMPARISON: 05/31/2019 FINDINGS: There has been a prior cholecystectomy. There is stable mild compensatory biliary dilatation. The liver, spleen, pancreas, and adrenal glands are grossly unremarkable. There are a few stable small renal cysts. The kidneys are unremarkable, otherwise. The urinary bladder is unremarkable. There is evidence of a prior hysterectomy. There is a surgical staple line associated with the colon. There is moderate gaseous distention of the colon that is nonspecific but there is no significant wall thickening to suggest colitis. There are a few fluid-filled loops of small bowel in the pelvis with mild distention likely representing mild ileus, perhaps from mild enteritis. However, there is no significant wall thickening involving the small bowel unlike the previous CT. There is nothing that would necessarily suggest bowel obstruction. A partial bowel obstruction is possible, however. The remainder of the GI tract is essentially unremarkable. There is trace free fluid layering in the pelvis that is similar to the previous study. No focal inflammatory changes are appreciated. IMPRESSION: 1.Moderate gaseous distention of the colon and mild distention and air-fluid levels involving small bowel loops in the pelvis that are nonspecific. Consider ileus. Low-grade bowel obstruction is less likely. 2.No colonic wall thickening identified to indicate colitis. 3.Trace pelvic free fluid that is stable. Electronically signed by Honorio Madden 06/22/2019 4:28 PM 06/22/19 1628 Interpreting Physician: Honorio Madden MD Dictated Date/Time: 06/22/19 1618 cc: Dalton Morgan MD; Génesis Hernandez MD) - CONSULTS/PCP/HOSPITALIST Notification #1 *Consult/PCP/Hospitalist*: SONG Hatfield, paged at 1630 Time Discussed: 16:52 (returned call and will admit) Consult Disposition: Will see in ED, Admit Departure - Departure Date of Disposition Decision: 06/22/19 Time of Disposition Decision: 16:54 DIAGNOSIS: Abdominal pain with radiation to back, Hyperbilirubinemia Vomiting Qualifiers: Vomiting type: unspecified Vomiting Intractability: non-intractable Nausea presence: with nausea Qualified Code(s): R11.2 - Nausea with vomiting, unspeci fied Disposition: ADMITTED INPATIENT 09 Certified Medical Emergency: Emergent Condition: Fair Referrals and Follow-Ups: Génesis Hernandez MD [Primary Care Provider] - Discharge Education: Steps to Quit Smoking, [id number] - Critical Care Note This patient required my direct & personal management of CC.: No Attestation - Physician/ LUZ Attestation Patient care was provided by Advanced Practice Provider:: No The physician spent face to face time with patient:: Yes Advanced Practice Provider documentation review:: Supervising physician onsite and consulted in the evaluation and care of this patient. The physician did have a face to face encounter with the patient. This chart was documented by the indicated scribe, (Aretha Dejesus Scribe) and accurately reflects the services I performed and decisions made by me, Dalton Morgan MD, as attested by the provider's signature.
--- NOTE | 2019-06-22 18:23 | HISTORY AND PHYSICAL ---
HISTORY OF PRESENT ILLNESS: Ms. Islas is a 58-year-old. She is followed by Génesis Pederson MD. She presents again with abdominal pain that started on Friday, this is Friday. Friday, she had a tuna fish sandwich and she has hurt across her mid abdomen. It hurt her all night and it has hurt off and on in waves since that time. She has had nausea and has thrown up and just very uncomfortable. This is a 58-year-old black female who states that since May 16 she had been having generalized abdominal pain radiating to her back at level of umbilicus. Reports the pain is constant, type, and she came in on 05/22/2019. She was given some IV morphine. PAST MEDICAL HISTORY: 1. 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 She has residual right-sided weakness, which is mild. 2. Hypothyroidism. 3. Hypertension. 4. Hepatitis C for which she received treatment of Harvalvarado. 5. History of bowel obstruction and perforation for which she underwent a bowel resection. She had a second revision later on. 6. COPD. 7. History of upper GI bleed in 2014, believed secondary to EGD findings that showed erosive esophagitis and gastritis. 8. Hiatal hernia. PAST SURGICAL HISTORY: 1. Colon resection x2. 2. Brain surgery for aneurysm. 3. Hysterectomy. 4. She think she had her gallbladder out, but I do not see record of that. SOCIAL HISTORY: She has smoked for a long time, approximately 3 black and milds per day since her teenage years. Occasional marijuana use. Reports she drinks occasional wine or wine cooler cocktail but not regular. FAMILY HISTORY: Positive for sister having a history of colon cancer. Mother had a history of lung cancer. She did not know her father and did not know any of his medical history. ALLERGIES: Patient has no known allergies. PRESENT MEDICATIONS: Reviewed. I think she also has a history of hypothyroidism, she was on Synthroid. Taking some Lyrica I think for neuropathy or pain and some underlying COPD for which she takes an inhaler and Anoro Ellipta. REVIEW OF SYSTEMS: General: She does not know of any weight gain or loss, but she has not been eating well and food upsets her stomach. In particular, on Friday, the tuna fish sandwich was very upsetting. HEENT: No change in visual or hearing acuity. Neck: No neck pain or adenopathy. Respiratory: No increased work of breathing or dyspnea. She has known COPD. Cardiovascular: No chest pain or tachy palpitation. GI/: The abdominal pain. She did say her bowels look black and they have been that way since Friday. A lot of abdominal cramping as well. No gross hematuria. No change in her urination. Musculoskeletal/Neurologic: No new changes. Skin: Without any report of any rashes. No fever or chills. PHYSICAL EXAMINATION: GENERAL: She is afebrile. She is awake and alert, oriented x3, pleasant. Answers questions appropriately. VITAL SIGNS: Temp 98.1 degrees, pulse 87, respirations 19, blood pressure 111/87. Weight 140 pounds. Height 5 feet 8 inches. HEENT: Pupils are equal and round. Oral and nasal mucosa unremarkable. Conjunctivae pink. Sclera, I do not appreciate much icterus. There may be a little bit of yellow. LUNGS: Clear in all lung cruz. CARDIOVASCULAR: Regular rhythm and rate without murmur or S3. ABDOMEN: Soft. It is really not tender, but is uncomfortable all across the mid abdomen, not really in the epigastrium. I do not appreciate much swelling or ascites. SKIN: Warm and dry. No rashes. NECK: Supple without adenopathy or thyromegaly. LAB: White count 6,860, hematocrit 44, platelet count 225,000. Sodium 142, potassium 3.9, chloride 104, BUN 6, creatinine 0.6, blood sugar 78, calcium 10.5, AST 259, ALT 236, alkaline phosphatase 392. CK is 58. Protime is 14.7, PTT is 29. Urinalysis unremarkable. Abdominal and pelvic CT: 1. Moderate gaseous distention of the colon. Mild distention and air-fluid levels involving small bowel loops in the pelvis, nonspecific, consider ileus, low-grade bowel obstruction. 2. Colonic wall thickening identified which could indicate colitis. 3. Trace pelvic free fluid that is stable. She had a prior cholecystectomy, so she did have her gallbladder out. Mild compensatory biliary dilatation. Liver, spleen, pancreas, adrenal glands were grossly unremarkable. There are a few stable small cysts. Kidneys unremarkable. ASSESSMENT AND PLAN: 1. Abdominal pain, nonspecific, but she has had a history of small bowel obstruction before. She has elevation of transaminases and she has elevation of bilirubin, so concerned about her liver and possibly pancreatic duct. So we will get GI involved. I am going to put her on clear liquids for now. Because there is a question of colitis down in the colon, I will put her on a combination of Flagyl and Levaquin. We will check a hepatitis profile. 2. Primary hypothyroidism. Continue Synthroid 50 mcg a day. Check a T4 and TSH. 3. History of chronic obstructive pulmonary disease. We will continue her on her Anoro Ellipta inhaler. 4. Dark stools concerning for melena. Her hematocrit and hemoglobin look good though and MCV is 93. She has a history of hepatitis C and treated with Harvoni in the past, so I am not really sure, and she is status post cholecystectomy. cc: Rudy Kim MD MTDD
[2019-06-22] MEDS: NS 1,000 ML IV SCH (19:44)
[2019-06-22] MEDS: LEVAQUIN 500 MG/D5W 500 MG/100 ML IVPB IV SCH (19:45)
[2019-06-22] MEDS: FLAGYL 500 MG/NS 500 MG/100 ML IVPB IV SCH (21:37)
[2019-06-22] MEDS: PROTONIX PO SCH (21:37)
[2019-06-22] MEDS: LYRICA PO SCH (21:37)
[2019-06-22] MEDS: MORPHINE IV PRN (22:04)
[2019-06-23] MEDS: MORPHINE IV PRN ×4 (03:12→21:13)
[2019-06-23] MEDS: FLAGYL 500 MG/NS 500 MG/100 ML IVPB IV SCH ×4 (03:12→22:30)
[2019-06-23] MEDS: SYNTHROID PO SCH (08:55)
[2019-06-23] MEDS: PROTONIX PO SCH ×2 (08:55→22:30)
[2019-06-23] MEDS: LYRICA PO SCH ×3 (09:13→22:30)
[2019-06-23 09:31] LABS: INR 1.28; PROTIME 16.2 Seconds (11.0-16.0)
[2019-06-23 09:37] LABS: BASO# 0.04 X1000 (0.0-0.2); BASO% 0.9 % (0.0-0.8); EOS# 0.07 X1000 (0.0-0.7); EOS% 1.6 % (0.0-10.0); HEMATOCRIT 37.9 % (37.0-47.0); HEMOGLOBIN 11.7 g/dL (12.0-16.0); LYMPH% 38.6 % (20.5-51.1); MCH 30.1 PG (27-31); MCHC 30.9 g/dL (33-37); MCV 97.4 FL (81-99); MONO# 0.64 X1000 (0.11-0.59); MONO% 14.5 % (1.7-9.3); MPV 11.3 FL (7.4-10.4); NEUT# 1.95 X1000 (1.4-6.5); NEUT% 44.4 % (42.2-75.2); PLT 166 X1000 (130-400); RBC 3.89 XMIL (4.2-5.4); RDW 14.1 % (11.5-14.5)
[2019-06-23 10:07] LABS: AGAP 15; ALB/GLOB RATIO 0.9; ALBUMIN 2.9 g/dL (3.5-5.0); ALKALINE PHOSPHATASE 252 U/L (32-104); BUN 7 mg/dL (8-22); CALCIUM 8.4 mg/dL (8.8-10.2); CHLORIDE 106 mmol/L (98-107); COSMO 273; CREATININE 0.7 mg/dL (0.5-0.9); ESTIMATED GFR > 60; GLUCOSE 60 mg/dL (70-104); GOT 131 U/L (10-30); GPT 142 U/L (10-36); MAGNESIUM 1.8 mg/dL (1.5-2.7); POTASSIUM 3.3 mmol/L (3.5-5.1); SODIUM 139 mmol/L (136-145); TCO2 18 mmol/L (25-35); TOTAL BILIRUBIN 1.47 mg/dL (0.20-1.00)
--- NOTE | 2019-06-23 13:19 | PROGRESS NOTE ---
DATE: 06/23/2019 SUBJECTIVE: Ms. Islas says she feels a little better than yesterday. Nausea has diminished. Still uncomfortable in her abdomen. OBJECTIVE: Vital Signs: Temp 97.2 degrees, remains afebrile, pulse 60, respirations 18, blood pressure 99/64. HEENT: Pupils are equal and round. Lungs: Clear in all lung cruz. Cardiovascular: Regular rhythm and rate without murmur or S3. Urine output was 2000 mL. ASSESSMENT AND PLAN: 1. Moderate gaseous distention of the colon, mild distention and air-fluid levels involving small loops of bowel and possible colitis. Consider it was a nonspecific ileus. 2. Elevation of bilirubin and of her transaminases. The transaminases have come down. The bilirubin has come down from 6 to 1.47. AST and ALT were 259 and 236, and they came down in 24 hours just to 131 and 142, so that is encouraging and improving. Hepatitis profile pending. 3. Primary hypothyroidism. 4. She complained of some dark stools, and her hematocrit and hemoglobin look pretty good, pretty stable. Gastroenterology is going to evaluate as well. She is not hungry. I am going to keep her on clear liquids for now. cc: Rudy Kim MD
[2019-06-23 13:43] LABS: HEPATITIS PROFILE ACUTE SEE COMMENTS
[2019-06-23] MEDS: NS 1,000 ML IV SCH (14:30)
[2019-06-23] MEDS: LEVAQUIN 500 MG/D5W 500 MG/100 ML IVPB IV SCH (22:29)
[2019-06-24] MEDS: MORPHINE IV PRN ×5 (01:18→21:25)
[2019-06-24] MEDS: FLAGYL 500 MG/NS 500 MG/100 ML IVPB IV SCH ×4 (02:54→21:23)
[2019-06-24] MEDS: NS 1,000 ML IV SCH ×2 (04:11→17:51)
[2019-06-24] MEDS: LYRICA PO SCH ×3 (09:12→21:23)
[2019-06-24] MEDS: PROTONIX PO SCH ×2 (09:12→21:23)
[2019-06-24] MEDS: SYNTHROID PO SCH (09:12)
[2019-06-24] MEDS: ANORO ELLIPTA 62.5-25 MCG INH INH SCH (10:45)
[2019-06-24 13:07] LABS: HCV BY PCR SEE COMMENTS
--- NOTE | 2019-06-24 15:26 | GASTROENTEROLOGY CONSULTATION ---
DATE: 06/24/2019 REASON FOR CONSULTATION: Abdominal pain. HISTORY: Ms. Islas is a 58 -year-old -[place] female with a past medical history of hypertension, prior brain aneurysm requiring craniotomy and clipping in 2003 with residual right- sided weakness, hypothyroidism, treated hepatitis C, prior colonic obstruction x2 requiring/colon resection in 2011 and 2012, history of gastritis, hemorrhoids, presented to the emergency room on 2019. The patient has been complaining that she has been having stomach problems. She said that this has started from Friday onwards when she ate a tuna fish sandwich. She mentioned that the tuna fish had in January 2019. After eating the sandwich, she felt like she had abdominal pain, nausea and vomiting. She tried to go to her primary care provider who is Dr. Génesis Hernandez but she was not there on Friday, so she went to see her on Friday. They did some labs and found out that her liver function tests were elevated. The patient has complained of nausea and vomiting but she has denied any fever, chills, heartburn, or chest pain, but did mention that when she coughs her chest hurts. She has not had any problems with bowel movements but is noticing dark tarry stools. Her liver function tests on 06/23 showed bilirubin of 1.47, AST 131, ALT 142, alkaline phos 252. Ammonia level was 22. Patient's chest x-ray on 06/22 showed no acute disease. Her abdomen and pelvis CT on 06/22 has shown moderate gaseous distention of the colon and mild distention and air fluid levels involving small bowel loops in the pelvis that are nonspecific, consider ileus. Low-grade bowel obstruction is less likely. No colonic wall thickening identified to indicate colitis, trace pelvic free fluid that is stable. GI had seen her in April 2019. An EGD was done and it showed ileal ulcers, evidence of sub-total colectomy, normal distal sigmoid colon and rectum, no evidence of colitis, no evidence of recent or active GI bleed. Pathology report revealed chronic gastritis, negative H-pylori and ileum biopsy showed fragments of reactive small bowel mucosa with patchy active inflammation and ulcerations. PAST MEDICAL HISTORY: Hypertension, hypothyroidism, treated hepatitis C, prior colonic obstruction requiring resection, history of non pylori gastritis, hiatal hernia, prior stroke from brain aneurysm, tobacco abuse. PAST SURGICAL HISTORY: Colonic resection x2, brain surgery for aneurysm, hysterectomy. SOCIAL HISTORY: The patient is single. She smokes about 2 to 3 cigars daily, has marijuana occasionally. She drinks 1 to 2 wine coolers daily. FAMILY HISTORY: Notable for pancreatic cancer in her sister and lung cancer in mother. No family history of inflammatory bowel disease or colon cancer. MEDICATIONS: Lyrica 50 mg p.o. 3 times a day, Synthroid 50 mcg p.o. a.m., Anoro Ellipta 62.5/25 mcg inhaler 1 puff daily. REVIEW OF SYSTEMS: As per HPI. Otherwise, 12 point review of system. PHYSICAL EXAMINATION: Vital signs: Temperature 97.8 degrees, pulse 64, respirations 15, blood pressure 121/71, oxygen saturation 98% on 2 L nasal cannula. The patient's weight is 140 pounds. BMI is 21.3 m2. General: She is alert, oriented x3. Answering questions appropriately and in no acute distress. HEENT: Pale conjunctivae. No icterus. PERRL. Neck: Supple. Lungs: Clear to auscultation. Cardiovascular: Regular rate and rhythm. Abdomen: Soft, tender. Active bowel sounds heard in all quadrants. EXTREMITIES: No cyanosis, clubbing or edema. Pedal pulses 2+ present bilaterally. Neurologic: She is alert and oriented x 3, nonfocal. Cranial nerves 2 -12 grossly intact. LABS: WB 4.40, RBC 3.89, hemoglobin 11.7, hematocrit 37.9, platelet count is 166,000. PT 16.2. INR 1.28. Sodium 139, potassium 3.3, chloride 106, carbon dioxide 18, anion gap 15, BUN 7, creatinine 0.7, glucose 60, calcium 8.4, magnesium 1.8 total bilirubin 1.47, AST 131, ALT 142, alkaline phosphatase 52, albumin 2.9, TSH 1 4. Her urinalysis on 06/22/2018 showed protein 30 and moderate bilirubin. The patient's hepatitis profile has shown hepatitis B surface nonreactive, hepatitis B core antibody nonreactive. Hepatitis C antibody is reactive and hepatitis A viral antibody is nonreactive. IMAGING: Chest x-ray on 06/22/2018 showed no acute disease. Abdomen and pelvis CT has shown moderate gases distention of colon and mild distention and air- fluid levels involving small bowel loops in the pelvis that are nonspecific, consider ileus. Low-grade bowel obstruction is less likely. No chronic wall thickening identified to indicate colitis and trace pelvic free fluid that is stable. An endoscopy was done on 05/24. The patient had ileal ulcers. A colonoscopy was done on 06/24 and showed she had some ileal ulcers, evidence of subtotal colectomy. Normal distal sigmoid colon and rectum. No evidence of colitis given subtotal colectomy. No evidence of recent or active GI bleeding. IMPRESSION/PLAN: Dark stools Abdominal pain Elevated liver enzymes History of ileal ulcers h/o Hepatitis C s/p successful treatment PLAN: Ms. Islas is a 58 -year-old -[place] female with a with a history of hypertension, hypothyroid, treated hepatitis C and prior colonic obstruction requiring resection, history of gastritis, hiatal hernia, and prior stroke from the brain aneurysm and tobacco abuse. GI has been consulted for abdominal pain. We will order labs for SED rate and CRP to rule out any inflammatory disease. We will also order stool studies to rule out colitis. The patient is currently receiving IV fluids at 65 mL per hour. She is on antibiotic Levaquin and Flagyl. She is receiving Protonix 40 mg p.o. twice a day. The patient is on GI soft diet. We will continue to monitor the patient and awaiting the results of the stool study. We have counseled patient on smoking cessation and marijuana consumption, discussed the risks associated with it. Patient acknowledges understanding of the instructions. We will continue to monitor the patient and follow the plan of care. This plan was discussed with Dr. López. Thank you for your consult. Please call us for any further quetions or concerns. Dictated by SONG Arroyo for Andrews López MD cc: Andrews López MD I have seen and examined the patient myself and I agree with the above plan of care. Please call us with any questions or concerns. BRANDEE
--- NOTE | 2019-06-24 15:46 | Diag Imaging Result Doc PS360 ---
EXAM: US ABDOMEN-COMPLETE 06/24/2019 HISTORY: elevated liver enzymes TECHNIQUE: Abdominal ultrasound COMMENT: The visualized portions of the aorta and inferior vena cava are within normal limits. The body and head of the pancreas are normal in appearance. The liver is slightly hyperechoic and inhomogeneous in echotexture. There is antegrade flow in the portal vein. The common bile duct measures less than 7 mm. The spleen is not enlarged. The kidneys are without evidence of hydronephrosis or mass. There has been previous cholecystectomy. There is a left pleural effusion. IMPRESSION: Hepatic steatosis. Electronically signed by Nawaf Paiz 06/24/2019 3:44 PM
--- NOTE | 2019-06-24 16:31 | PROGRESS NOTE ---
DATE: 06/24/2019 SUBJECTIVE: Ms. Islas still had a pretty rough night. Her abdominal pain is a little less. She remains afebrile. She would like to try some food so we will try a soft gastrointestinal diet. OBJECTIVE: She remains afebrile. Temperature 97.8 degrees, pulse 64, respirations 15, and blood pressure 121/71. Pupils are equal and round. Lungs are clear in all lung cruz. Cardiovascular exam regular rhythm and rate without murmur or S3. Abdomen is soft. Skin is warm and dry. ASSESSMENT AND PLAN: This is a 58-year-old black female with a history of hypertension. She has history of hypothyroidism, and was treated for hepatitis C and prior colonic obstruction requiring resection. She has a history of gastritis, hiatal hernia, prior stroke for brain aneurysm, and tobacco use. She has been having abdominal pain. She had elevated liver enzymes. We are giving her Levaquin and Flagyl, and she is on Protonix 40 mg twice a day. We are awaiting results of stool study. Counseled the patient on smoking cessation, and counseled patient on marijuana consumption. Her blood counts showed white blood cell count yesterday was 4400, hematocrit 37, hemoglobin 11.7, MCV was 97, and platelet count 166,000. Sodium 139, potassium 3.3, chloride 106, BUN 7, creatinine 0.7, and calcium 8.4. Her AST was 131 and 142. Total bilirubin 1.47, and came down from AST of 259, ALT of 236, and bilirubin is 6.72. She seems to be doing a little better clinically. We will advance her diet. Appreciate GI's help. We are looking at current orders. Continue Flagyl 500 mg IV q.6, Levaquin 500 mg IV q.24 hours, Synthroid 50 mcg a day, Protonix 40 mg p.o. b.i.d., Lyrica 50 mg t.i.d. She takes her inhaler which is the Anoro Ellipta 62.5-25. She takes 1 puff daily. cc: Rudy Kim MD [facility]
[2019-06-24] MEDS: LEVAQUIN 500 MG/D5W 500 MG/100 ML IVPB IV SCH (21:23)
[2019-06-25] MEDS: FLAGYL 500 MG/NS 500 MG/100 ML IVPB IV SCH ×4 (02:45→20:16)
[2019-06-25] MEDS: NS 1,000 ML IV SCH ×2 (02:47→23:20)
[2019-06-25] MEDS: MORPHINE IV PRN ×4 (04:24→20:14)
[2019-06-25] MEDS: PROTONIX PO SCH ×2 (08:42→20:15)
[2019-06-25] MEDS: LYRICA PO SCH ×3 (08:42→20:15)
[2019-06-25] MEDS: SYNTHROID PO SCH (08:42)
[2019-06-25 08:45] LABS: INR 1.19; PROTIME 15.2 Seconds (11.0-16.0)
[2019-06-25 09:33] LABS: AGAP 10; ALB/GLOB RATIO 0.9; ALKALINE PHOSPHATASE 202 U/L (32-104); AMYLASE 69 U/L (20-200); BUN 3 mg/dL (8-22); CHLORIDE 108 mmol/L (98-107); COSMO 280; CREATININE 0.7 mg/dL (0.5-0.9); ESTIMATED GFR > 60; GLUCOSE 79 mg/dL (70-104); GOT 51 U/L (10-30); GPT 82 U/L (10-36); LIPASE 26 U/L (13-60); POTASSIUM 3.2 mmol/L (3.5-5.1); SODIUM 143 mmol/L (136-145); TCO2 25 mmol/L (25-35); TOTAL BILIRUBIN 0.78 mg/dL (0.20-1.00); TOTAL PROTEIN 6.2 g/dL (6.3-8.3)
--- NOTE | 2019-06-25 12:01 | GASTROENTEROLOGY PROGRESS NOTE ---
DATE: 06/25/2019 SUBJECTIVE: Ms. Islas is a 58-year-old -Malag[place] female resting in bed. She has denied any nausea, vomiting, but did mention that she has some generalized abdominal tenderness. The patient is currently on a GI soft diet and is able to tolerate her diet well. The patient has denied any bowel movements today, but had 2 yesterday. OBJECTIVE: Vital Signs: Temperature 97.9 degrees, pulse 61, respirations 14, blood pressure 131/73, oxygen saturation 99% on room air. The patient's weight is 140 pounds, BMI is 21.3 kg/m2. General: She is alert and oriented x3, and in no acute distress. HEENT: Pale conjunctivae. No icterus. PERRL. Neck: Supple. Lungs: Clear to auscultation. Cardiovascular: Regular rate and rhythm. Abdomen: Soft, tender, nondistended. Active bowel sounds heard in all 4 quadrants. Extremities: No clubbing, no cyanosis, no edema. Pedal pulses 2+ present bilaterally. Neurological: Alert and oriented x3. LABS: She has no new hematology. Chemistries are sodium 143, potassium 3.2, chloride 108, carbon dioxide 25, anion gap 10, BUN 3, creatinine is 0.7, glucose is 79, calcium 9.0, total bilirubin is 0.78, AST 51, ALT 82, alkaline phosphatase is 202. IMAGING: Her abdomen ultrasound has shown patient has got hepatic steatosis. EGD 05/25/2019 ESOPHAGUS: A 3 cm hiatal hernia was noted. The z-line was noted at 39cm from the incisors. The z-line appeared normal. STOMACH: Mild gastritis (inflammation) was found in the gastric body and gastric antrum. A biopsy was performed using cold forceps. DUODENUM: The duodenum was normal. Colonoscopy 05/25/2019 IMPRESSIONS: 1. Ileal ulcers 2. Evidence of sub-total colectomy 3. Normal distal sigmoid colon and rectum 4. No evidence of colitis given sub-total colectomy 5. No evidence of recent or active GI bleeding PATHOLOGY DIAGNOSIS: (1) Stomach, biopsy: - Chronic inactive gastritis. - H. pylori negative. (2) Ileum, biopsy: - Fragments of reactive small bowel mucosa with patchy active inflammation and ulceration. IMPRESSION AND PLAN: - Abdominal pain - History of Ileal ulcers - Abnormal LFTs - Hepatic steatosis - Gastritis - Hiatal hernia - Tobacco abuse - H/o subtotal colectomy - H/o CVA A/P: Ms. HARJINDER Islas is a 58 year old woman with h/o CVA with right-sided weakness, tobacco abuse, h/o subtotal colectomy, h/o treated HCV who presented with abdominal pain after having a tuna sandwich found to have abnormal LFTs, CT showing findings of possible ileus vs SBO. US showed hepatic steatosis. LFTs are now improving. HCV VL negative. Hepatitis panel otherwise negative. She is a non-drinker. ?DILI vs. passed stone. She is on IVFs and antibiotics with Levaquin and Flagyl. Biopsies from ileum on prior colonoscopy was negative for Crohn's. Continue supportive care. Will follow with you. Please call us for any further questions or concerns. If she continues to have pain, then will consider MR or CT mesentery to evaluate for chronic mesenteric ischemia. Dictated by SONG Arroyo for Eric Winter MD Physician Attestation I have seen and examined the patient. I have discussed and reviewed the note by Opal ZULETA and agree with findings and plan as documented. Edits have been made above. BRANDEE
[2019-06-25] MEDS: ANORO ELLIPTA 62.5-25 MCG INH INH SCH (14:45)
--- NOTE | 2019-06-25 15:10 | PROGRESS NOTE ---
DATE: 06/25/2019 SUBJECTIVE: Ms. Islas feels better today, less nausea. She was able to get food down. In fact, she ate all of her breakfast. She remains afebrile. OBJECTIVE: Vital signs: Temperature 98.6 degrees, pulse 59, respirations 14, blood pressure 126/74. HEENT: Pupils are equal and round. Lungs: Clear in all lung cruz. Cardiovascular: Regular rhythm and rate without murmur or S3. ASSESSMENT AND PLAN: This is a 58-year-old black female, history of hypertension, treated for hepatitis C in the past with Kam, and she has a history of chronic obstructive pulmonary disease. She has had chronic obstructive pulmonary disease obstruction with resection and came in with generalized abdominal tenderness and nausea. Ultrasound shows that she has some hepatic steatosis. Liver enzymes were elevated but trending downward. Currently getting IV fluids and we have been able to advance her diet. She seems to be better clinically. Hepatitis profile is pending. REVIEW OF ORDERS: She is on Protonix 40 mg b.i.d., Lyrica 50 mg p.o. t.i.d., umeclidinium inhaler 1 puff daily, Levaquin 500 mg IV q.24 hours, Synthroid 50 mcg q.a.m., Flagyl 500 mg q.6 hours. REVIEW OF LAB: I do not see any change. Liver enzymes are coming down nicely. C-reactive protein was 19.98 which is quite a bit elevated. cc: Rudy Kim MD
[2019-06-25] MEDS: LEVAQUIN 500 MG/D5W 500 MG/100 ML IVPB IV SCH (20:16)
[2019-06-26] MEDS: MORPHINE IV PRN ×4 (01:43→20:46)
[2019-06-26] MEDS: FLAGYL 500 MG/NS 500 MG/100 ML IVPB IV SCH ×4 (02:27→20:44)
[2019-06-26] MEDS: PROTONIX PO SCH ×2 (09:20→20:45)
[2019-06-26] MEDS: LYRICA PO SCH ×3 (09:20→20:44)
[2019-06-26] MEDS: SYNTHROID PO SCH (09:20)
[2019-06-26] MEDS: NS 1,000 ML IV SCH ×2 (09:24→15:20)
--- NOTE | 2019-06-26 11:22 | PROGRESS NOTE ---
DATE: 06/26/2019 SUBJECTIVE: Ms. Islas does feel a little better. She is hurting in her back. Her bowels are moving. She is eating. She remains afebrile. OBJECTIVE: Vital signs: Temperature 97.9 degrees, pulse 50, respirations 20, blood pressure 121/70. HEENT: Pupils are equal and round. Lungs: Clear in all lung cruz. Cardiovascular: Regular rhythm and rate without murmur or S3. Urine output: 1400 mL. ASSESSMENT AND PLAN: Dyspepsia, abdominal discomfort, elevated transaminases. Her liver functions have come down. AST and ALT on admission were 259 and 236, alkaline phosphatase was 329 and total bilirubin was 6.72 and these have come down nicely. Bilirubin down to 0.78, and AST 51, ALT 82. She is eating a little bit better and seems to be doing a little better, so we will increase her activity. She has a history of hypothyroid disease, on Synthroid. She is on high- dose Protonix 40 mg twice a day. Gastroenterology is following. Hepatitis profile nonreactive for hepatitis B surface and core antigen, reactive to hepatitis C antibody. Hepatitis C RNA was not detected, so no sign of active hepatitis C, and she has been treated with Harvoni so suspect she may have had a viral syndrome. She seems to be improving. Question on whether she had colitis. I put her on some antibiotics and hopefully she can go home on Friday. REVIEW OF ORDERS: She is on Flagyl 500 mg IV q.6, Levaquin 500 mg IV q.24 hours, Protonix 40 mg twice a day, Lyrica 50 mg p.o. t.i.d. cc: Rudy Kim MD
[2019-06-26] MEDS: LEVAQUIN 500 MG/D5W 500 MG/100 ML IVPB IV SCH (20:44)
[2019-06-27] MEDS: MORPHINE IV PRN ×3 (01:02→09:15)
[2019-06-27] MEDS: FLAGYL 500 MG/NS 500 MG/100 ML IVPB IV SCH ×4 (02:32→21:35)
[2019-06-27] MEDS: NS 1,000 ML IV SCH (05:41)
[2019-06-27] MEDS: PROTONIX PO SCH ×2 (09:15→21:34)
[2019-06-27] MEDS: SYNTHROID PO SCH (09:15)
[2019-06-27] MEDS: LYRICA PO SCH ×3 (09:15→21:34)
--- NOTE | 2019-06-27 11:30 | PROGRESS NOTE ---
DATE: 06/27/2019 SUBJECTIVE: Ms. Islas says she is better. She still gets the abdominal pain and cramping, and she is still getting IV pain medicine. OBJECTIVE: Vital Signs: Temp 97.8 degrees, pulse 67, respirations 20, blood pressure 139/81. HEENT: Pupils are equal and round. Lungs: Clear in all lung cruz. Cardiovascular: Regular rhythm and rate without murmur or S3. ASSESSMENT AND PLAN: Dyspepsia, abdominal discomfort, elevated transaminases. This has improved. Liver enzymes have gone down. CBC is unremarkable. Will check again, liver enzymes in the morning. I suspect she might have had a viral syndrome. We are going to need to stop the morphine intravenously. I will let her try some tramadol. I was treating her for colitis. She is on Flagyl and Levaquin. I am going to stop the Flagyl and Levaquin, and will keep her on high- dose Protonix and see if we can try some oral tramadol for her pain. Check liver enzymes again in the morning. cc: Rudy Kim MD
[2019-06-27] MEDS: ULTRAM PO PRN ×2 (15:20→21:38)
[2019-06-27] MEDS: LEVAQUIN 500 MG/D5W 500 MG/100 ML IVPB IV SCH (20:51)
[2019-06-28] MEDS: FLAGYL 500 MG/NS 500 MG/100 ML IVPB IV SCH ×3 (03:52→14:22)
[2019-06-28] MEDS: NS 1,000 ML IV SCH (04:51)
[2019-06-28] MEDS: ULTRAM PO PRN (09:35)
[2019-06-28] MEDS: LYRICA PO SCH ×2 (09:35→14:22)
[2019-06-28] MEDS: SYNTHROID PO SCH (09:35)
[2019-06-28] MEDS: PROTONIX PO SCH (09:36)
[2019-06-28 12:19] VITALS: BP 128/81
--- NOTE | 2019-06-28 13:00 | GASTROENTEROLOGY PROGRESS NOTE ---
DATE: 06/28/2019 SUBJECTIVE: Ms. Islas is a 58-year-old, -[place] female sitting in bed, eating her breakfast. The patient has denied any nausea or vomiting. She mentioned that she does have some generalized abdominal tenderness but it has been improving. The patient is currently on a GI soft diet and she is able to tolerate her diet well. She has denied having any bowel movements today. OBJECTIVE: Vital Signs: Temperature 97.6 degrees, pulse 60, respirations 16, blood pressure 128/81, oxygen saturation 98% on room air. The patient's weight is 140 pounds, BMI is 21.3 kg/m2. General: She is alert, oriented x3, and in no acute distress. HEENT: Pale conjunctivae. No icterus. PERRL. Neck: Supple. Lungs: Clear to auscultation. Cardiovascular: Regular rate and rhythm. Abdomen: Soft, tender, nondistended. Active bowel sounds heard in all 4 quadrants. Extremities: No clubbing, no cyanosis, no edema. Pedal pulses 2+ present bilaterally. Neurologic: She is alert, oriented x3. Laboratory: The patient has no new hematology. Her chemistries are from 06/25/2019. Sodium is 143, potassium 3.2, chloride 108, carbon dioxide 25, anion gap 10, BUN 3, creatinine 0.7, glucose 79, calcium 9.0. Total bilirubin 0.78, AST 51, ALT 82, alkaline phosphatase 202, albumin 3.0. IMPRESSION AND PLAN: 1. Abdominal pain. 2. History of ileal ulcers. 3. Elevated liver enzymes. 4. Hiatal hernia. 5. Tobacco abuse. PLAN: Ms. Islas is a 58-year-old, -[place] female with a history of abdominal pain, ileal ulcers, elevated liver enzymes and tobacco abuse. GI is following her for her abdominal pain. The the patient is currently receiving IV fluids at 65 mL per hour. She is on antibiotics, Levaquin and Flagyl. Advised the patient to avoid any NSAIDs. We had ordered some stool studies for her but they are still pending. We have asked the dietitian to give her diet information that she can follow when she is at home. Patient will follow up with Dr. Winter as an outpatient in 4 to 6 weeks. She has discharged orders to go home. This plan was discussed with Dr. López. Please call us for any further questions or concerns. Dictated by SONG Arroyo for Andrews López MD cc: Andrews López MD I have seen and examined the patient myself and I agree with the above plan of care. Please call us with any further questions or concerns MTDD
--- NOTE | 2019-06-28 14:12 | DISCHARGE SUMMARY ---
ADMISSION DATE: 06/22/2019 DISCHARGE DATE: 06/28/2019 HISTORY OF PRESENT ILLNESS: A 58-year-old followed by Dr. Génesis Hernandez, who presented with abdominal pain, epigastric and diffuse mid abdominal pain. She had a tuna fish sandwich, and since that time hurt across her mid abdomen, nausea, throwing up, very uncomfortable. PAST MEDICAL HISTORY: 1. 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 She underwent surgical repair of this. Has residual right-sided weakness which is mild. 2. Hypothyroidism. 3. Hypertension. 4. Hepatitis C for which she received treatment with Harvoni. 5. History of bowel obstruction and perforation, for which she underwent bowel resection. She had a second revision later on. 6. COPD. 7. History of gastrointestinal bleed in 2014, believed secondary to EGD findings that showed erosive esophagitis and gastritis. 8. Hiatal hernia. PAST SURGICAL HISTORY: 1. Colon resection x2. 2. Brain surgery for aneurysm. 3. Hysterectomy. 4. She had her gallbladder out. HOSPITAL COURSE: Admitted with elevated transaminases. We checked a hepatitis profile. Did not see any active viral hepatitis. Early enzymes seemed to improve with fluids. We did an abdominal ultrasound. She does have some hepatic steatosis, but otherwise unremarkable. Gastroenterology was asked to see, Dr. López evaluated. We continue the proton pump inhibitors. We encouraged smoking cessation. I did not see any reason to pursue invasive tests at this point. Encouraged smoking cessation and marijuana cessation. She showed steady improvement, and she was asking to go home today. Stool studies were still pending. She wanted a dietitian just to kind of give her some guidelines. Follow up with Dr. Winter as an outpatient in 4 to 6 weeks. Continue to monitor. We will discharge her on the following medications: I will stop her Levaquin. We will give her Synthroid 50 mcg q.a.m. We will stop the Flagyl, give her Protonix 40 mg p.o. b.i.d., Lyrica 50 mg p.o. t.i.d., and I will give her some tramadol p.r.n. pain. She is on her Anoro Ellipta inhaler. We will continue that as well. cc: Rudy Kim MD
[2019-06-28] MEDS ORDERED: PNEUMOVAX 23 IM ONE (14:30)
== END 2019-06-28 16:26 | disposition home or self-care (01) | DRG 866 ==
LOC: ED 09:41 → EDIPHOLD 18:33 → 3N 22:18
PROVIDERS: ATTEND Emergency Medicine